=== PATIENT | male | born 1995 | race Caucasian/White ===

== ENCOUNTER 2020-10-16 17:49 | Emergency (ER) | payer SELFPAY ==
[2020-10-16 17:54] VITALS: BP 158/103; PULSE 92; RESP 18; TEMP 36.3; O2SAT 99; BMI 18.4
--- NOTE | 2020-10-16 18:16 | CTR_ITS ---
PROCEDURE INFORMATION: Exam: CT Abdomen And Pelvis Without Contrast Exam date and time: 10/16/2020 6:20 PM Age: 25 years old Clinical indication: Abdominal pain; Flank; Prior surgery; Surgery type: Left kidney; Additional info: Left flank pain. H/o kidney stones TECHNIQUE: Imaging protocol: Computed tomography of the abdomen and pelvis without contrast. Radiation optimization: All CT scans at this facility use at least one of these dose optimization techniques: automated exposure control; mA and/or kV adjustment per patient size (includes targeted exams where dose is matched to clinical indication); or iterative reconstruction. COMPARISON: CT Abdomen/Pelvis Renal [id number] 02/08/2019 10:46 PM RADIATION DOSE METRICS: Total DLP (mGy-cm): 559.25 FINDINGS: Lungs: The lung bases appear unremarkable. Liver: The liver is unremarkable in appearance. Gallbladder and bile ducts: No calcified gallstones in the gallbladder. No gallbladder wall thickening. No pericholecystic fluid. No biliary dilatation. Pancreas: The pancreas is normal in appearance. No pancreatic duct dilatation. Spleen: The spleen is normal in size and appearance. Adrenal glands: Unremarkable. No mass. Kidneys and ureters: Severe left hydronephrosis. Left ureter is dilated. There is a 4.5 mm distal left ureteral calculus. Findings are consistent with left obstructive uropathy. 5 mm retained calculus in the left renal collecting system. No right renal calculi. Stomach and bowel: Minimal diverticulosis of the distal colon. No acute diverticulitis. No acute gastric abnormality demonstrated. The small bowel is unremarkable as demonstrated. Appendix: The appendix is normal in appearance. No evidence of appendicitis. Intraperitoneal space: No free air. No significant fluid collection. Vasculature: The aorta is unremarkable as demonstrated. Lymph nodes: No pathologically enlarged lymph nodes are demonstrated. Urinary bladder: Urinary bladder is empty, but appears grossly unremarkable. Reproductive: Unremarkable as visualized. Bones/joints: Unremarkable. No acute fracture. Soft tissues: The soft tissues appear unremarkable. CT/CT kidney stone [id number] IMPRESSION: 1. Severe left hydronephrosis. Left ureter is dilated. There is a 4.5 mm distal left ureteral calculus. Findings are consistent with left obstructive uropathy. 2. 5 mm retained calculus in the left renal collecting system. No right renal calculi. Radiation Dose CTDIVOL = (mGy): DLP = 559.25 (mGy-cm)
[2020-10-16] MEDS: ketorolac 30 mg/mL INJ IVP (18:25)
[2020-10-16] MEDS: ondansetron 2 mg/ML SDV 2 mL 4 MG IVP (18:25)
[2020-10-16 18:35] LABS: Basophils # 0.1 10^3/uL (0.0-0.1); Basophils % 0.6 %; Eosinophils # 0.1 10^3/uL (0.0-0.8); Eosinophils % 0.6 %; Hematocrit 46.7 % (42.0-52.0); Hemoglobin 15.7 g/dL (11.7-16.6); Lymphocytes # 2.4 10^3/uL (0.8-4.8); Lymphocytes % 26.1 %; Mean Corpuscular HGB Conc 33.6 g/dL (30.0-36.0); Mean Corpuscular Hemoglobin 30.3 pg (28.0-34.0); Mean Platelet Volume 11.5 fL (7.4-10.4); Monocytes # 0.6 10^3/uL (0.2-0.9); Monocytes % 6.8 %; Neutrophils # 5.95 10^3/uL (1.8-7.7); Neutrophils % 65.6 %; Nucleated Red Blood Cells % 0 %; Platelet Count 165 10^3/cmm (130-400); Red Blood Count 5.19 10^6/uL (4.1-5.3); White Blood Count 9.1 10^3/uL (4.0-10.0)
[2020-10-16 18:47] LABS: Glucose Urine UA Norm (Normal); Protein Urine Trace (Negative); Specific Gravity, Urine 1.025 (1.005-1.030); Urine Appearance Hazy (CLEAR); Urine Color Yellow (Yellow); pH Urine 5 (5-7)
[2020-10-16 18:48] LABS: Add Urine Microscopic? YES; Bilirubin Urine 1+ (Negative); Blood Urine 3+ (Negative); Ketones Urine Negative (Negative); Leukocyte Esterase Urine Negative (Negative); Nitrate Urine Negative (Negative); Urobilinogen Urine 1 mg/dL (Negative)
[2020-10-16 19:04] LABS: Alanine Aminotransferase 13 U/L (0-41); Albumin Level 4.5 g/dL (3.5-5.2); Alkaline Phosphatase 59 IU/L (40-130); Anion Gap 12.9 (5-19); Aspartate Amino Transferase 15 U/L (0-40); Blood Urea Nitrogen 9 mg/dL (6-20); C Reactive Protein 0.5 mg/L (0.0-4.9); Calcium 9.4 mg/dL (8.5-10.5); Carbon Dioxide 27 mmol/L (22-29); Chloride 102 mmol/L (98-107); Creatinine Clr Calc Pharmacy 74.8112; Glomerular Filtration Rate 73.2 mL/min (90-130); Glucose 102 mg/dL (65-115); Lipase 45 U/L (13-60); Osmolality Calculated 285 mOsm/kg (285-295); Potassium 3.9 mmol/L (3.5-5.1); Sodium 138 mmol/L (136-145); Total Bilirubin 0.9 mg/dL (0.15-1.2); Total Protein 7.5 g/dL (6.6-8.7)
[2020-10-16 19:18] VITALS: RESP 16; O2SAT 97
[2020-10-16 19:18] LABS: Mucus Urine 4+ /hpf
[2020-10-16] MEDS: morphine 4 mg/mL SDV 1 mL IVP (19:18)
[2020-10-16 19:19] LABS: RBC Urine 40-50 /hpf (0-2); WBC Urine 0-4 /hpf (0-5)
[2020-10-16 19:20] LABS: Add Urine Culture? Yes; Bacteria Urine 2+ /hpf; Squamous Epithelial Cell Urine 0-4 /hpf (0-5)
[2020-10-16 19:25] VITALS: BP 135/90; PULSE 84; RESP 16; O2SAT 98
--- NOTE | 2020-10-16 19:34 | ED_ITS ---
HPI - Male Genitourinary General: Chief complaint: Urogenital-Male Stated complaint: SEVERE L SIDE PAIN Time Seen by Provider: 10/16/20 18:06 Source: patient Mode of arrival: ambulatory Limitations: no limitations History of Present Illness: HPI Narrative: Patient Onset (ago): day(s) (2) Duration: constant Radiation: left flank Severity: severe Quality: sharp Relieving factors: none Exacerbating factors: none Associated symptoms: Reports nausea; Deny discharge, dysuria, fevers/chills, hematuria, rash, swelling, urinary incontinence, urinary retention, mass or vomiting Review of Systems General: Reports: 10 or more systems reviewed and unremarkable except in HPI and below Const: Denies: fever(s), chills or body aches Eyes: Denies: change in vision or blurry vision ENMT: Denies: throat pain, enlarged tonsils, odynophagia, hoarseness, mouth pain or swelling of lips/tongue Card: Denies: palpitations, irregular heart rhythm, edema or swelling of feet/ankles Resp: Denies: dyspnea, productive cough or non-productive cough GI: Reports: nausea; Denies: vomiting : Reports: flank pain; Denies: dysuria, urinary incontinence or hematuria Musc: Denies: neck pain, back pain or extremity swelling Skin/Breast: Denies: rash, pruritus or erythema Neuro: Denies: headache(s), numbness in extremities or weakness in extremities Endo: Denies: polyuria, polydipsia or tired all the time Physical Exam Const: COMMON NORMALS: no acute distress, average body habitus, patient oriented x3, no limitations, healthy appearing, alert and well nourished HENMT: COMMON NORMALS: normocephalic, atraumatic and moist oral mucous membranes HEAD & SCALP: normocephalic and atraumatic Eye: COMMON NORMALS: Equal, round and reactive pupils present, EOMs intact bilaterally, conjunctivae normal and no scleral icterus CONJUNCTIVA: Yes conjunctivae normal PUPIL: Yes Equal, round and reactive pupils present Neck/C-Spine: COMMON NORMALS: no meningeal signs and no JVD Resp: COMMON NORMALS: normal respiratory effort, No retractions, No use of accessory muscles, clear to auscultation bilaterally and percussion normal AUSCULTATION: clear to auscultation bilaterally PERCUSSION: percussion normal Cardio: COMMON NORMALS: no JVD, regular rate, regular rhythm, S1 normal heart sound present, S2 normal heart sound present, No gallops present (Cardio), No clicks present (Cardio), No murmurs present (Cardio), No rub (Cardio) and Peripheral pulses 2+ throughout RATE: regular rate RHYTHM: regular rhythm HEART SOUNDS: S1 normal heart sound present and S2 normal heart sound present PERIPHERAL PULSES: Peripheral pulses 2+ throughout GI: COMMON NORMALS: Normal to inspection, nondistended, normoactive bowel sounds present, Soft to palpation, non-tender, No hepatosplenomegaly present, no masses and no bruits PALPATION: Yes Soft to palpation and Yes No hepatosplenomegaly present Back/Pelvis: GENERAL BACK: Yes CVA tenderness CVA tenderness: left Extremity: COMMON NORMALS: normal to inspection, full ROM, capillary refill normal, no calf tenderness and no pedal edema Neuro: COMMON NORMALS: patient oriented x3 SENSORIUM/ORIENTATION: Yes alert MENINGEAL SIGNS: Yes no meningeal signs Skin: COMMON NORMALS: no rashes or lesions noted, no wounds, turgor normal, no jaundice, no petechiae and no mottling GENERAL SKIN EXAM: no rashes or lesions noted and turgor normal Course Reevaluation(s): Reevaluation #1: Patient seen pain well controlled. He feels much better. Discussed lab and imaging findings with him, he has severe left hydronephrosis and will need evaluation by urologist and possible stent placement. We will discharge him home with some pain medication and a strainer. Will discuss with the urologist and inform him of what urology says. No signs of UTI, white cell count is normal. Time: 19:20 Consultations: Consultation #1: Discussed the patient with Dr. Bundy, urologist. He will see the patient in the office and the patient should be seen in 1 to 2 days. Ensure the patient has a strainer, pain medications and swabbing for Covid in case he needs to be taken to the OR this week. Time: 19:30 Vital Signs: Vital signs: Vital Signs Temperature 97.3 F L 10/16/20 17:54 Pulse Rate 84 10/16/20 19:25 Respiratory Rate 16 10/16/20 19:25 Blood Pressure 135/90 10/16/20 19:25 Pulse Oximetry 98 01/12/21 19:25 MDM - Male MDM Narrative: Medical decision making narrative: Patient with a left ureteral stone and severe left hydronephrosis. Pain was well controlled in the ED, no signs of an infection with a normal white cell count and a UA that is negative for infection. He is discharged home with pain medication, he already has Flomax at home. Is also sent home with a strainer and he is to follow up with a urologist in 1 to 2 days. Medical Records: Attestation: I reviewed the patient's medical records. Lab Data: Attestation: I reviewed the patient's lab results. Labs: Lab Results 10/16/20 10/16/20 10/16/20 Range/Units 18:12 18:16 18:16 WBC 9.1 (4.0-10.0) 10^3/ uL RBC 5.19 (4.1-5.3) 10^6/u L Hgb 15.7 (11.7-16.6) g/dL Hct 46.7 (42.0-52.0) % MCV 90.0 (80-94) fL MCH 30.3 (28.0-34.0) pg MCHC 33.6 (30.0-36.0) g/dL RDW 12.0 L (12.1-15.1) % Plt Count 165 (130-400) 10^3/c mm MPV 11.5 H (7.4-10.4) fL Neut % (Auto) 65.6 % Lymph % (Auto) 26.1 % [place] % (Auto) 6.8 % Eos % (Auto) 0.6 % Baso % (Auto) 0.6 % Neut # (Auto) 5.95 (1.8-7.7) 10^3/u L Lymph # (Auto) 2.4 (0.8-4.8) 10^3/u L [place] # (Auto) 0.6 (0.2-0.9) 10^3/u L Eos # (Auto) 0.1 (0.0-0.8) 10^3/u L Baso # (Auto) 0.1 (0.0-0.1) 10^3/u L Nucleated RBC % (a uto) 0 % Nucleated RBCs # 0.0 /100WBC Sodium 138 (136-145) mmol/L Potassium 3.9 (3.5-5.1) mmol/L Chloride 102 (98-107) mmol/L Carbon Dioxide 27 (22-29) mmol/L Anion Gap 12.9 (5-19) BUN 9 (6-20) mg/dL Creatinine 1.2 (0.7-1.2) mg/dL GFR Calculation 73.2 L (90-130) mL/min Glucose 102 (65-115) mg/dL Calculated Osmolal ity 285 (285-295) mOsm/k g Calcium 9.4 (8.5-10.5) mg/dL Total Bilirubin 0.9 (0.15-1.2) mg/dL AST 15 (0-40) U/L ALT 13 (0-41) U/L Alkaline Phosphata se 59 (40-130) IU/L C-Reactive Protein 0.5 (0.0-4.9) mg/L Total Protein 7.5 (6.6-8.7) g/dL Albumin 4.5 (3.5-5.2) g/dL Globulin 3.0 (1.3-4.6) g/dL Lipase 45 (13-60) U/L Urine Color Yellow (Yellow) Urine Appearance Hazy A (CLEAR) Urine pH 5 (5-7) Ur Specific Gravit y 1.025 (1.005-1.030) Urine Protein Trace (Negative) Urine Glucose (UA) Norm (Normal) Urine Ketones Negative (Negative) Urine Blood 3+ H (Negative) Urine Nitrate Negative (Negative) Urine Bilirubin 1+ H (Negative) Urine Urobilinogen 1 H (Negative) mg/dL Ur Leukocyte Heidi ase Negative (Negative) Urine RBC 40-50 H (0-2) /hpf Urine WBC 0-4 H (0-5) /hpf Ur Squamous Epith Cells 0-4 H (0-5) /hpf Amorphous Sediment Not Reportable Urine Bacteria 2+ H (NONE) /hpf Urine Mucus 4+ /hpf Imaging Data: CT Abd/Pel: Radiologist's impression: [address] [address] [address] Scan Report Signed Patient: Ronnie Calhoun Jorge #: [id number] : 1995Acct#:[id number] Age/Sex: 25 / MADM Date: 10/16/20 Loc: ERRoom/Bed: Attending Dr: Ordering Provider/Ordering MD: Jaky Metz MD, MSM Date of Service: 10/16/20 Procedure(s): CT kidney stone [id number] Accession Number(s): [id number] Report Number: [id number] PROCEDURE INFORMATION: Exam: CT Abdomen And Pelvis Without Contrast Exam date and time: 10/16/2020 6:20 PM Age: 25 years old Clinical indication: Abdominal pain; Flank; Prior surgery; Surgery type: Left kidney; Additional info: Left flank pain. H/o kidney stones TECHNIQUE: Imaging protocol: Computed tomography of the abdomen and pelvis without contrast. Radiation optimization: All CT scans at this facility use at least one of these dose optimization techniques: automated exposure control; mA and/or kV adjustment per patient size (includes targeted exams where dose is matched to clinical indication); or iterative reconstruction. COMPARISON: CT Abdomen/Pelvis Renal [id number] 02/08/2019 10:46 PM RADIATION DOSE METRICS: Total DLP (mGy-cm): 559.25 FINDINGS: Lungs: The lung bases appear unremarkable. Liver: The liver is unremarkable in appearance. Gallbladder and bile ducts: No calcified gallstones in the gallbladder. No gallbladder wall thickening. No pericholecystic fluid. No biliary dilatation. Pancreas: The pancreas is normal in appearance. No pancreatic duct dilatation. Spleen: The spleen is normal in size and appearance. Adrenal glands: Unremarkable. No mass. Kidneys and ureters: Severe left hydronephrosis. Left ureter is dilated. There is a 4.5 mm distal left ureteral calculus. Findings are consistent with left obstructive uropathy. 5 mm retained calculus in the left renal collecting system. No right renal calculi. Stomach and bowel: Minimal diverticulosis of the distal colon. No acute diverticulitis. No acute gastric abnormality demonstrated. The small bowel is unremarkable as demonstrated. Appendix: The appendix is normal in appearance. No evidence of appendicitis. Intraperitoneal space: No free air. No significant fluid collection. Vasculature: The aorta is unremarkable as demonstrated. Lymph nodes: No pathologically enlarged lymph nodes are demonstrated. Urinary bladder: Urinary bladder is empty, but appears grossly unremarkable. Reproductive: Unremarkable as visualized. Bones/joints: Unremarkable. No acute fracture. Soft tissues: The soft tissues appear unremarkable. CT/CT kidney stone [id number] IMPRESSION: 1. Severe left hydronephrosis. Left ureter is dilated. There is a 4.5 mm distal left ureteral calculus. Findings are consistent with left obstructive uropathy. 2. 5 mm retained calculus in the left renal collecting system. No right renal calculi. Radiation Dose CTDIVOL = (mGy): DLP = 559.25 (mGy-cm) Dictated By:Samuel Matson MD Signed By:Samuel Matson MDSigned Date/Time:10/16/201855 DD/ 54 Discharge Plan Discharge Patient Disposition: Home Clinical Impression: Hydronephrosis concurrent with and due to calculi of kidney and ureter Condition: Stable Prescriptions: New [place] 5-325 mg tablet 1 tab PO Q6H PRN (Reason: kidney stones) Qty: 20 RF: 0 Continued Flomax 0.4 mg Capsule 0.4 mg PO ONCE RF: 0 ibuprofen 200 mg Tablet 600 mg PO PRN RF: 0 Discharge Orders: Discharge ED (Routine); Ordered 10/16/20 Ordered By: Jaky Metz Referrals: Sage Bundy MD [Physician] - 1-3 days Discharge Diet: Usual diet Discharge Activity: Increase activity as tolerated Patient Instructions: Kidney Stones (ED), How to Strain Your Urine (ED) Activity Restrictions/Additional Instructions: Return for any new or worsening symptoms. Take the pain medicine as required for pain. Use the Flomax as prescribed. Strain your urine and if you pass the stone take it with you to the urologist. Call the office of the urologist tomorrow to schedule an appointment to be seen in 1 to 2 days. Coding Level of Care Code ED Senior Quality Assurance Specialist for Chg Fwd Exam Comprehensive
[2020-10-16] MEDS: HYDROcodone-acetaminophen 5-325 mg Tablet 4 TAB PO (20:20)
[2020-10-16 20:22] VITALS: BP 135/90; PULSE 95; RESP 15; TEMP 36.4; O2SAT 98
[2020-10-17 15:41] LABS: Coronavirus Test Green County Not Detected
== END 2020-10-16 20:22 | disposition home or self-care (01) ==
PROVIDERS: Emergency Provider Family Medicine
DX: N13.2 Hydronephrosis with renal and ureteral calculous obstruction (principal)
CPT/HCPCS: 12345; 74176; 80053; 81001; 83690; 85025; 86140; 87086; 87635; 96374; 96375; 99283; J1885; J2270; J2405

== ENCOUNTER 2020-10-17 14:06 | Outpatient (CLI) | payer SELFPAY ==
--- NOTE | 2020-10-17 14:12 | XR_ITS ---
WS: [id number] KUB, 10/17/2020 Clinical Data: Stones Comparison: KUB, 02/10/2019. Findings: No abnormal intraabdominal masses are seen. There is a 0.8 cm calcification overlying the midportion of the left kidney. There is no dilatated small bowel or evidence of obstruction. There is a large amount of fecal material throughout the colon. XR/XR KUB [id number] Impression: Possible left renal calcification.
== END 2020-10-17 14:07 | disposition home or self-care (01) ==
LOC: RAD 14:11
PROVIDERS: Visit Provider Urology
DX: N13.2 Hydronephrosis with renal and ureteral calculous obstruction (principal)
CPT/HCPCS: 74018; 81003

== ENCOUNTER 2020-10-24 13:09 | Outpatient (CLI) | payer SELFPAY ==
--- NOTE | 2020-10-24 13:45 | XR_ITS ---
WS: [id number] KUB, 10/24/2020 Clinical Data: STONE Comparison: KUB, 10/17/2020. Findings: No abnormal intraabdominal masses or calcifications are seen. There is no dilatated small bowel or ev idence of obstruction. There is a large amount of fecal material obscuring detail over both kidneys and the true pelvis. XR/XR KUB [id number] Impression: Negative KUB.
== END 2020-10-24 13:10 | disposition home or self-care (01) ==
LOC: RAD 13:10
PROVIDERS: Visit Provider Urology
DX: N20.9 Urinary calculus, unspecified (principal)
CPT/HCPCS: 74018; 81003; 82365; 88300

== ENCOUNTER 2021-04-29 02:47 | Emergency (ER) | payer SELFPAY ==
[2021-04-29 02:57] VITALS: BP 142/87; PULSE 75; RESP 16; TEMP 36.4; O2SAT 99; BMI 19.0
--- NOTE | 2021-04-29 03:22 | CTR_ITS ---
PROCEDURE INFORMATION: Exam: CT Abdomen And Pelvis Without Contrast Exam date and time: 04/29/2021 3:22 AM Age: 25 years old Clinical indication: Abdominal pain; Flank; Left; Additional info: Flank pain TECHNIQUE: Imaging protocol: Computed tomography of the abdomen and pelvis without contrast. Radiation optimization: All CT scans at this facility use at least one of these dose optimization techniques: automated exposure control; mA and/or kV adjustment per patient size (includes targeted exams where dose is matched to clinical indication); or iterative reconstruction. COMPARISON: CT kidney stone [id number] 10/16/2020 6:35 PM RADIATION DOSE METRICS: Total DLP (mGy-cm): 546.4 FINDINGS: Liver: Normal. No mass. Gallbladder and bile ducts: Normal. No calcified stones. No ductal dilation. Pancreas: Normal. No ductal dilation. Spleen: Normal. No splenomegaly. Adrenal glands: Normal. No mass. Kidneys and ureters: There is massive hydronephrosis seen within the left kidney. There is an obstructing 4.9 mm mid left ureteral calculus present. There is a 1.9 mm nonobstructing left renal calculus seen. Stomach and bowel: Unremarkable. No obstruction. No mucosal thickening. Appendix: No evidence of appendicitis. Intraperitoneal space: Unremarkable. No free air. No significant fluid collection. Vasculature: Unremarkable. No abdominal aortic aneurysm. Lymph nodes: Unremarkable. No enlarged lymph nodes. Urinary bladder: Unremarkable as visualized. Reproductive: Unremarkable as visualized. Bones/joints: Unremarkable. No acute fracture. Soft tissues: Unremarkable. CT/CT kidney stone [id number] IMPRESSION: 1. Obstructing 4.9 mm mid left ureteral calculus with prominent hydronephrosis seen within the left kidney. 2. Nonobstructing 1.9 mm left renal calculus. Radiation Dose CTDIVOL = (mGy): DLP = 546.4 (mGy-cm)
--- NOTE | 2021-04-29 03:22 | W.ED.ABDPA2 ---
HPI - Abdominal Pain General: Chief Complaint: Abdominal Pain Stated Complaint: abd pain Time Seen by Provider: 04/29/21 02:51 History of Present Illness: HPI narrative: 25-year-old male presents emergency room complaining of left flank pain. States he feels like he had a kidney stone. Has had some nausea and vomiting with it. He has had renal stones in the past. He is not noticed any hematuria no dysuria urgency or frequency no fever. MD elicited complaint: flank pain Pertinent past history: kidney stones Onset (ago): hour(s) Pain Consistency: constant Location: L flank Severity: severe Quality: stabbing and sharp Radiation: suprapubic Migration to: no migration Exacerbating factors: nothing Relieving factors: nothing Associated Symptoms: Denies anorexia, belching, bloating, change in bowel habits, change in stool character, chills, coffee ground emesis, constipation, GI cramping, diarrhea, dyspepsia, dysuria, excessive flatus, fever(s), heartburn, hematochezia, hematuria, hematemesis, fecal incontinence, loose stools, melena, nausea, poor appetite, syncope and vomiting Review of Systems Const: Denies: fever(s) or chills ENMT: Denies: throat pain, ear or mastoid pain, nasal discharge or nasal congestion Card: Denies: syncope Resp: Denies: dyspnea, productive cough or non-productive cough GI: Denies: nausea, vomiting, hematemesis, coffee ground emesis, heartburn, diarrhea, constipation, bloating, GI cramping, belching, excessive flatus, fecal incontinence, change in bowel habits, change in stool character, hematochezia or melena : Denies: dysuria or hematuria Skin/Breast: Denies: rash or pruritus PFSH ED PFSH: Medical History Left ureteral calculus Renal colic Family History Family/Other Dementia Social History Smoking and tobacco status: light tobacco smoker smokeless tobacco Smokeless tobacco user: chewing tobacco Alcohol intake: never Marital status: Physical Exam Const: COMMON NORMALS: no acute distress GENERAL APPEARANCE: cooperative and comfortable ORIENTATION/CONSCIOUSNESS: Yes awake, Yes oriented to person, Yes oriented to place and Yes oriented to time HENMT: COMMON NORMALS: normocephalic, atraumatic and hearing grossly normal bilaterally HEAD & SCALP: normocephalic and atraumatic Neck/C-Spine: COMMON NORMALS: no JVD Resp: COMMON NORMALS: normal respiratory effort, No retractions, No use of accessory muscles and clear to auscultation bilaterally AUSCULTATION: clear to auscultation bilaterally Cardio: COMMON NORMALS: no JVD, regular rate, regular rhythm and No murmurs present (Cardio) RATE: regular rate RHYTHM: regular rhythm GI: COMMON NORMALS: Soft to palpation and No hepatosplenomegaly present AUSCULTATION: Yes normoactive bowel sounds PALPATION: Yes Soft to palpation, No Tenderness to palpation present (GI), No Guarding due to palpation present (GI) and Yes No hepatosplenomegaly present Extremity: COMMON NORMALS: normal to inspection, capillary refill normal, no clubbing, cyanosis or edema, no calf tenderness and no pedal edema Neuro: SENSORIUM/ORIENTATION: Yes oriented to person, Yes oriented to place and Yes oriented to time Skin: COMMON NORMALS: no rashes or lesions noted GENERAL SKIN EXAM: no rashes or lesions noted Course Vital Signs: Vital signs: Vital Signs Temperature 97.5 F L 04/29/21 02:57 Pulse Rate 75 04/29/21 02:57 Respiratory Rate 16 04/29/21 04:16 Blood Pressure 142/87 04/29/21 02:57 Pulse Oximetry 97 04/29/21 04:16 MDM - Abdominal Pain MDM Narrative: Medical decision making narrative: Pain controlled. Reviewed labs and imaging. Reviewed with the patient. Discharge home with urine strainer follow-up with Dr. Bundy later this week return if pain uncontrolled. Lab Data: Attestation: I reviewed the patient's lab results. Labs: Lab Results 04/29/21 04/29/21 04/29/21 Range/Units 03:18 03:18 03:40 WBC 6.7 (4.0-10.0) 10^3/ uL RBC 4.61 (4.1-5.3) 10^6/u L Hgb 13.6 (11.7-16.6) g/dL Hct 40.0 L (42.0-52.0) % MCV 86.8 (80-94) fL MCH 29.5 (28.0-34.0) pg MCHC 34.0 (30.0-36.0) g/dL RDW 12.8 (12.1-15.1) % Plt Count 185 (130-400) 10^3/c mm MPV 12.0 H (7.4-10.4) fL Neut % (Auto) 59.4 % Lymph % (Auto) 31.8 % [place] % (Auto) 7.1 % Eos % (Auto) 1.0 % Baso % (Auto) 0.6 % Neut # (Auto) 4.00 (1.8-7.7) 10^3/u L Lymph # (Auto) 2.1 (0.8-4.8) 10^3/u L [place] # (Auto) 0.5 (0.2-0.9) 10^3/u L Eos # (Auto) 0.1 (0.0-0.8) 10^3/u L Baso # (Auto) 0.0 (0.0-0.1) 10^3/u L Nucleated RBC % (a uto) 0 % Nucleated RBCs # 0.0 /100WBC Sodium 140 (136-145) mmol/L Potassium 3.9 (3.5-5.1) mmol/L Chloride 105 (98-107) mmol/L Carbon Dioxide 26 (22-29) mmol/L Anion Gap 12.9 (5-19) BUN 12 (6-20) mg/dL Creatinine 0.9 (0.7-1.2) mg/dL GFR Calculation 102.0 (90-130) mL/min Glucose 98 (65-115) mg/dL Calculated Osmolal ity 290 (285-295) mOsm/k g Calcium 8.8 (8.5-10.5) mg/dL Total Bilirubin 0.3 (0.15-1.2) mg/dL AST 13 (0-40) U/L ALT 12 (0-41) U/L Alkaline Phosphata se 61 (40-130) IU/L Total Protein 7.0 (6.6-8.7) g/dL Albumin 4.0 (3.5-5.2) g/dL Globulin 3.0 (1.3-4.6) g/dL Lipase 75 H (13-60) U/L Urine Color Yellow (Yellow) Urine Appearance Clear (CLEAR) Urine pH 6.5 (5-7) Ur Specific Gravit y 1.015 (1.005-1.030) Urine Protein Neg (Negative) Urine Glucose (UA) Norm (Normal) Urine Ketones Negative (Negative) Urine Blood Neg (Negative) Urine Nitrate Negative (Negative) Urine Bilirubin Neg (Negative) Urine Urobilinogen Norm (Negative) mg/dL Ur Leukocyte Heidi ase Negative (Negative) Discharge Plan Discharge Patient Disposition: Home Clinical Impression: Left ureteral calculus Condition: Stable Prescriptions: New hydrocodone-acetaminophen 5-325 mg tablet 1 tab PO Q6H PRN (Reason: pain) Qty: 20 RF: 0 Zofran 4 mg tablet 4 mg PO Q6H PRN (Reason: nausea and vomiting) Qty: 15 RF: 0 tamsulosin 0.4 mg capsule 0.4 mg PO DAILY Qty: 14 RF: 0 No Action ondansetron HCl 8 mg tablet 8 mg PO Q8H Qty: 20 RF: 1 promethazine 25 mg suppository 25 mg [place] Q6H PRN (Reason: nausea and vomiting) Qty: 12 RF: 0 Flomax 0.4 mg capsule 0.4 mg PO DAILY Qty: 30 RF: 0 ibuprofen 200 mg Tablet 600 mg PO PRN RF: 0 [place] 5-325 mg tablet 1 tab PO Q6H PRN (Reason: kidney stones) Qty: 20 RF: 0 Discharge Orders: Discharge ED (Routine); Ordered 04/29/21 Ordered By: Manjit Rojas Discharge Diet: Usual diet Discharge Activity: Increase activity as tolerated Patient Instructions: Opioid Safety Activity Restrictions/Additional Instructions: Case management will call to make arrangements for you to follow-up with Dr. Bundy. Return to the emergency room if pain is uncontrolled Coding Level of Care Code ED Women'S Activities Adviser for Declan Fwbinta Exam Comprehensive
[2021-04-29 04:00] LABS: Add Urine Microscopic? NO; Charge for UA Resulting for Rev
[2021-04-29 04:03] LABS: Basophils % 0.6 %; Eosinophils # 0.1 10^3/uL (0.0-0.8); Hemoglobin 13.6 g/dL (11.7-16.6); Lymphocytes # 2.1 10^3/uL (0.8-4.8); Lymphocytes % 31.8 %; Mean Corpuscular Hemoglobin 29.5 pg (28.0-34.0); Mean Corpuscular Volume 86.8 fL (80-94); Monocytes # 0.5 10^3/uL (0.2-0.9); Monocytes % 7.1 %; Neutrophils % 59.4 %; Nucleated Red Blood Cells % 0 %; Platelet Count 185 10^3/cmm (130-400); Red Blood Count 4.61 10^6/uL (4.1-5.3); Red Cell Distribution Width 12.8 % (12.1-15.1); White Blood Count 6.7 10^3/uL (4.0-10.0)
[2021-04-29 04:07] LABS: Bilirubin Urine Neg (Negative); Blood Urine Neg (Negative); Glucose Urine UA Norm (Normal); Ketones Urine Negative (Negative); Leukocyte Esterase Urine Negative (Negative); Nitrate Urine Negative (Negative); Protein Urine Neg (Negative); Specific Gravity, Urine 1.015 (1.005-1.030); Urine Appearance Clear (CLEAR); Urine Color Yellow (Yellow); Urobilinogen Urine Norm (Negative); pH Urine 6.5 (5-7)
[2021-04-29 04:16] VITALS: RESP 16; O2SAT 97
[2021-04-29] MEDS: morphine 4 mg/mL SDV 1 mL IVP (04:16)
[2021-04-29] MEDS: ondansetron 2 mg/ML SDV 2 mL 4 MG IVP (04:16)
[2021-04-29 04:19] LABS: Alanine Aminotransferase 12 U/L (0-41); Alkaline Phosphatase 61 IU/L (40-130); Anion Gap 12.9 (5-19); Aspartate Amino Transferase 13 U/L (0-40); Blood Urea Nitrogen 12 mg/dL (6-20); Calcium 8.8 mg/dL (8.5-10.5); Carbon Dioxide 26 mmol/L (22-29); Chloride 105 mmol/L (98-107); Glucose 98 mg/dL (65-115); Lipase 75 U/L (13-60); Osmolality Calculated 290 mOsm/kg (285-295); Potassium 3.9 mmol/L (3.5-5.1); Sodium 140 mmol/L (136-145); Total Bilirubin 0.3 mg/dL (0.15-1.2)
[2021-04-29 05:08] VITALS: BP 130/84; PULSE 68; RESP 14; TEMP 36.8; O2SAT 96
--- NOTE | 2021-04-29 10:47 | DCPLANNER ---
senior risk manager had message to schedule a follow up appointment for patient with Dr. Bundy for kidney stone. senior risk manager called the office of Dr. Bundy, spoke with Pennie, gave clinic patients information. senior risk manager was told that patients information would be printed and reviewed. Clinic will call patient with appointment information.
--- NOTE | 2021-04-30 08:31 | DCPLANNER ---
Patient has a follow up appointment scheduled for Friday, April 30, 2021 at 11:[address] Bundy. Clinic will call patient with appointment information.
--- NOTE | 2021-05-09 11:51 | DCPLANNER ---
[facility] for [facility] Bundy - patient did attend appointment.
== END 2021-04-29 05:10 | disposition home or self-care (01) ==
PROVIDERS: Emergency Provider Family Medicine
DX: N20.1 Calculus of ureter (principal); F17.220 Nicotine dependence, chewing tobacco, uncomplicated
CPT/HCPCS: 74176; 80053; 81003; 83690; 85025; 96374; 96375; 99283; J2270; J2405

== ENCOUNTER 2021-04-30 09:35 | Outpatient (CLI) | payer SELFPAY ==
--- NOTE | 2021-04-30 10:00 | XR_ITS ---
WS: [id number] XR KUB [id number] REASON FOR EXAM: URETERAL STONE FINDINGS: CT scan 04/29/2021 demonstrated 2 tiny left intrarenal calculi and a calculus in the left ureter at th e L4 level. The left intrarenal calculi are not readily identifiable. The left ureteral calculus at L 4 is not identifiable. No other significant abdominal abnormality. XR/XR KUB [id number] IMPRESSION: Previous CT demonstrated left renal and left ureteral calculi are not identifie d.
== END 2021-04-30 09:36 | disposition home or self-care (01) ==
LOC: RAD 09:42
PROVIDERS: Visit Provider Urology
DX: N20.1 Calculus of ureter (principal)
CPT/HCPCS: 74018; 81003

== ENCOUNTER 2021-05-08 12:41 | Outpatient (CLI) | payer SELFPAY ==
--- NOTE | 2021-05-08 12:30 | XR_ITS ---
WS: [id number] KUB, AP view, 05/08/2021 Clinical Data: URETERAL CALCULUS Comparison: KUB, 04/30/2021. Findings: No abnormal intraabdominal masses or calcifications are seen. There is no dilatated small bowel or ev idence of obstruction. Fecal material and colon gas obscure detail over the kidneys. There is a phlebolith at the left side of the true pelvis. XR/XR KUB [id number] Impression: Negative KUB.
== END 2021-05-08 12:42 | disposition home or self-care (01) ==
LOC: RAD 12:43
PROVIDERS: Visit Provider Urology
DX: N20.1 Calculus of ureter (principal)
CPT/HCPCS: 74018; 81003

== ENCOUNTER 2021-06-20 16:38 | Emergency (ER) | payer SELFPAY ==
[2021-06-20 16:46] VITALS: BP 128/84; PULSE 72; RESP 18; TEMP 36.8; O2SAT 99; BMI 19.0
[2021-06-20 17:09] LABS: Basophils % 0.5 %; Eosinophils # 0.1 10^3/uL (0.0-0.8); Hematocrit 44.9 % (42.0-52.0); Hemoglobin 15.3 g/dL (11.7-16.6); Lymphocytes # 2.2 10^3/uL (0.8-4.8); Mean Corpuscular HGB Conc 34.1 g/dL (30.0-36.0); Mean Corpuscular Hemoglobin 29.9 pg (28.0-34.0); Mean Corpuscular Volume 87.9 fl (80-94); Monocytes # 0.5 10^3/uL (0.2-0.9); Monocytes % 6.6 %; Neutrophils # 5.17 10^3/uL (1.8-7.7); Neutrophils % 64.6 %; Nucleated Red Blood Cells % 0 %; Platelet Count 195 10^3/cmm (130-400); Red Blood Count 5.11 10^6/uL (4.1-5.3); Red Cell Distribution Width 12.7 % (12.1-15.1)
[2021-06-20 17:10] VITALS: BP 114/74; PULSE 78; RESP 12; O2SAT 98
--- NOTE | 2021-06-20 17:10 | W.ED.MALEGU ---
HPI - Male Genitourinary General: Chief complaint: Urogenital-Male Stated complaint: STATES HAS KIDNEY STONES, BLOODY URINE Time Seen by Provider: 06/20/21 17:10 History of Present Illness: HPI Narrative: 26-year-old male patient comes in today with left flank pain. Patient states that he started having discomfort and noticed some blood in his urine last Thursday. Patient states that he seemed to have gotten better after 3 days of pain and discomfort and thought he had passed a kidney stone. Patient then yesterday started having some more pain that increased throughout today. Patient did take a hydrocodone this morning and then took some ibuprofen and aspirin later in the day. Patient denies any fever or chills. Patient appears in mild to moderate pain. Patient appears well. Review of Systems General: Reports: 10 or more systems reviewed and unremarkable except in HPI and below : Reports: flank pain PFS ED PFSH: Medical History Left ureteral calculus Renal colic Family History Family/Other Dementia Social History Alcohol intake: never Marital status: History of recent travel: No Physical Exam Const: COMMON NORMALS: no acute distress and patient oriented x3 GENERAL APPEARANCE: cooperative HENMT: COMMON NORMALS: normocephalic and Normal external nose present HEAD & SCALP: normal to inspection and normocephalic NOSE: Normal external nose present Eye: GENERAL EYE: appearance normal, both eyes and all related structures Neck/C-Spine: COMMON NORMALS: full ROM Chest: COMMONS NORMALS: normal inspection of the chest Resp: COMMON NORMALS: normal respiratory effort EFFORT & INSPECTION: Yes able to speak in complete sentences Cardio: COMMON NORMALS: regular rate and regular rhythm RATE: regular rate RHYTHM: regular rhythm GI: COMMON NORMALS: Soft to palpation PALPATION: Yes Soft to palpation and Yes Tenderness to palpation present (GI) Details: LUQ : BLADDER/KIDNEY EXAM: Yes CVA tenderness on the left Back/Pelvis: COMMON NORMALS: thoracic and lumbar spine normal to inspection GENERAL BACK: Yes CVA tenderness Extremity: COMMON NORMALS: normal to inspection Neuro: COMMON NORMALS: patient oriented x3 and moves all extremities Psych: COMMON NORMALS: mental status grossly normal and cooperative Skin: COMMON NORMALS: no rashes or lesions noted GENERAL SKIN EXAM: no rashes or lesions noted Course Vital Signs: Vital signs: Vital Signs Temperature 98.2 F 06/20/21 16:46 Pulse Rate 74 06/20/21 18:40 Respiratory Rate 16 06/20/21 18:40 Blood Pressure 129/86 06/20/21 18:40 Pulse Oximetry 99 06/20/21 18:40 MDM - Male MDM Narrative: Medical decision making narrative: A 26-year-old male patient comes in today with complaints of left flank pain. Patient has a history of left ureteral stones in the past. Last one was 2 months ago in April. Patient reports he did started having pain on Thursday it seemed to improve for a short term through the beginning of the week but starting today he had worsening pain and discomfort. On exam patient's abdomen is soft with some tenderness in the left upper quadrant. Skin was warm and dry. Vital signs were normal. Differential diagnosis includes renal calculi, hydronephrosis, pyelonephritis. Laboratory values were unremarkable. Urinalysis had red blood cells in it. CT showed a 3 to 4 mm stone in the distal left ureter with some significant hydronephrosis in the left kidney. Patient's pain was brought under control with 4 mg of IV push morphine. Patient was also given some Zofran. Patient was instructed to follow-up with Dr. Bundy for further treatment. Patient reported understanding of care plan. Patient was written for recommended prescriptions for hydrocodone, ondansetron, and tamsulosin. Lab Data: Labs: Lab Results 06/20/21 06/20/21 06/20/21 Range/Units 17:00 17:02 17:02 WBC 8.0 (4.0-10.0) 10^3/ uL RBC 5.11 (4.1-5.3) 10^6/u L Hgb 15.3 (11.7-16.6) g/dL Hct 44.9 (42.0-52.0) % MCV 87.9 (80-94) fl MCH 29.9 (28.0-34.0) pg MCHC 34.1 (30.0-36.0) g/dL RDW 12.7 (12.1-15.1) % Plt Count 195 (130-400) 10^3/c mm MPV 11.0 H (7.4-10.4) fL Neut % (Auto) 64.6 % Lymph % (Auto) 27.0 % [place] % (Auto) 6.6 % Eos % (Auto) 1.0 % Baso % (Auto) 0.5 % Neut # (Auto) 5.17 (1.8-7.7) 10^3/u L Lymph # (Auto) 2.2 (0.8-4.8) 10^3/u L [place] # (Auto) 0.5 (0.2-0.9) 10^3/u L Eos # (Auto) 0.1 (0.0-0.8) 10^3/u L Baso # (Auto) 0.0 (0.0-0.1) 10^3/u L Nucleated RBC % (a uto) 0 % Nucleated RBCs # 0.0 /100WBC Sodium 142 (136-145) mmol/L Potassium 4.4 (3.5-5.1) mmol/L Chloride 105 (98-107) mmol/L Carbon Dioxide 30 H (22-29) mmol/L Anion Gap 11.4 (5-19) BUN 7 (6-20) mg/dL Creatinine 0.9 (0.7-1.2) mg/dL GFR Calculation 101.2 (90-130) mL/min Glucose 75 (65-115) mg/dL Calculated Osmolal ity 291 (285-295) mOsm/k g Calcium 9.1 (8.5-10.5) mg/dL Total Bilirubin 0.5 (0.15-1.2) mg/dL AST 16 (0-40) U/L ALT 16 (0-41) U/L Alkaline Phosphata se 58 (40-130) IU/L Total Protein 7.0 (6.6-8.7) g/dL Albumin 4.6 (3.5-5.2) g/dL Globulin 2.4 (1.3-4.6) g/dL Urine Color Yellow (Yellow) Urine Appearance Clear (CLEAR) Urine pH 6.5 (5-7) Ur Specific Gravit y 1.010 (1.005-1.030) Urine Protein Neg (Negative) Urine Glucose (UA) Norm (Normal) Urine Ketones Negative (Negative) Urine Blood 3+ H (Negative) Urine Nitrate Negative (Negative) Urine Bilirubin Neg (Negative) Urine Urobilinogen Norm (Negative) mg/dL Ur Leukocyte Heidi ase Negative (Negative) Urine RBC 10-15 H (0-2) /hpf Urine WBC None (0-5) /hpf Ur Squamous Epith Cells Rare (0-5) /hpf Amorphous Sediment Not Reportable Urine Bacteria Trace (NONE) /hpf Discharge Plan Discharge Patient Disposition: Home Clinical Impression: Left ureteral calculus Condition: Stable Prescriptions: New ondansetron 4 mg tablet,disintegrating 4 mg PO Q8H PRN (Reason: nausea and vomiting) Qty: 10 RF: 0 tamsulosin 0.4 mg capsule 0.4 mg PO DAILY Qty: 10 RF: 0 Continued hydrocodone-acetaminophen 5-325 mg tablet 1 tab PO Q6H PRN (Reason: pain) 5 Days Qty: 20 RF: 0 No Action Octaviano Aspirin 325 mg Tablet 325 mg PO Q4H PRN (Reason: Pain) RF: 0 ibuprofen 200 mg Tablet 200 mg PO Q6H PRN (Reason: Pain) RF: 0 Discharge Orders: Discharge ED (Routine); Ordered 06/20/21 Ordered By: Erick Santos Discharge Diet: Usual diet Discharge Activity: Increase activity as tolerated Patient Instructions: Renal Colic (ED), Opioid Safety Activity Restrictions/Additional Instructions: Activity as tolerated. Take medications as directed. Follow-up with Dr. Bundy's office in the morning for further treatment and evaluation. Return to the emergency department for high fever, worsening pains, or new concerns. Coding Level of Care Code ED Independent Marketing Consultant for Declan Hartley Exam Comprehensive
--- NOTE | 2021-06-20 17:17 | CTR_ITS ---
PROCEDURE INFORMATION: Exam: CT Abdomen And Pelvis Without Contrast Exam date and time: 06/20/2021 5:17 PM Age: 26 years old Clinical indication: Abdominal pain; Flank; Left; Additional info: Left flank pain, HX of renal calculi TECHNIQUE: Imaging protocol: Computed tomography of the abdomen and pelvis without contrast. Radiation optimization: All CT scans at this facility use at least one of these dose optimization techniques: automated exposure control; mA and/or kV adjustment per patient size (includes targeted exams where dose is matched to clinical indication); or iterative reconstruction. COMPARISON: CT kidney stone [id number] 04/29/2021 3:36 AM RADIATION DOSE METRICS: Total DLP (mGy-cm): 815.72 FINDINGS: Limitations: The absence of intravenous contrast lessens the sensitivity of this study for solid organ abnormalities. Liver: There is no focal abnormality within the liver. Gallbladder and bile ducts: The gallbladder is normal. Pancreas: The pancreas is normal. Spleen: The spleen is normal. Adrenal glands: The adrenal glands are normal. Kidneys and ureters: The right kidney is normal. There is no evidence of right hydronephrosis. There is no stone in the right ureter. There is a left renal collecting system calcification. There is marked left hydronephrosis. There is left hydroureter. There is a 3 x 4 mm size obstructing stone in the distal left ureter approximately 1.5 cm from the left ureterovesical junction. Stone measures up to 780 Hounsfield units. This stone is visible on the gambling dealer image. Stomach and bowel: There is no evidence of colitis/diverticulitis. There is no evidence of intestinal obstruction. Appendix: A normal appendix is identified. Intraperitoneal space: There is no evidence of free intraperitoneal fluid. Vasculature: Unremarkable. No abdominal aortic aneurysm. Lymph nodes: There are small periaortic lymph nodes but no adenopathy. Urinary bladder: Unremarkable as visualized. Reproductive: Unremarkable as visualized. Bones/joints: Unremarkable. No acute fracture. Soft tissues: Unremarkable. CT/CT kidney stone [id number] IMPRESSION: 1. Obstructing stone at the left ureterovesical junction causing severe left hydronephrosis and hydroureter. 2. Tiny nonobstructing left renal stone. Radiation Dose CTDIVOL = (mGy): DLP = 815.72 (mGy-cm)
[2021-06-20 17:30] LABS: Glucose Urine UA Norm (Normal); Ketones Urine Negative (Negative); Protein Urine Neg (Negative); Urine Appearance Clear (CLEAR); Urine Color Yellow (Yellow); pH Urine 6.5 (5-7)
[2021-06-20 17:30] LABS: Alanine Aminotransferase 16 U/L (0-41); Albumin Level 4.6 g/dL (3.5-5.2); Alkaline Phosphatase 58 IU/L (40-130); Anion Gap 11.4 (5-19); Aspartate Amino Transferase 16 U/L (0-40); Blood Urea Nitrogen 7 mg/dL (6-20); Calcium 9.1 mg/dL (8.5-10.5); Carbon Dioxide 30 mmol/L (22-29); Chloride 105 mmol/L (98-107); Creatinine Clr Calc Pharmacy 98.8733; Globulin 2.4 g/dL (1.3-4.6); Glomerular Filtration Rate 101.2 mL/min (90-130); Glucose 75 mg/dL (65-115); Osmolality Calculated 291 mOsm/kg (285-295); Potassium 4.4 mmol/L (3.5-5.1); Sodium 142 mmol/L (136-145); Total Bilirubin 0.5 mg/dL (0.15-1.2)
[2021-06-20 17:31] LABS: Add Urine Culture? Yes; Add Urine Microscopic? YES; Bacteria Urine TRACE /hpf; Bilirubin Urine Neg (Negative); Blood Urine 3+ (Negative); Leukocyte Esterase Urine Negative (Negative); Nitrate Urine Negative (Negative); Squamous Epithelial Cell Urine RARE /hpf (0-5); Urobilinogen Urine Norm (Negative)
[2021-06-20 18:05] VITALS: RESP 16
[2021-06-20] MEDS: morphine 4 mg/mL SDV 1 mL IVP (18:05)
[2021-06-20] MEDS: ondansetron 2 mg/ML SDV 2 mL 4 MG IVP (18:05)
[2021-06-20] MEDS: sodium chloride 0.9% 500 ML 999 ML IV (18:06)
[2021-06-20 18:40] VITALS: BP 129/86; PULSE 74; RESP 16; O2SAT 99
[2021-06-20 19:07] VITALS: BP 131/74; PULSE 96; RESP 18; O2SAT 98
== END 2021-06-20 19:08 | disposition home or self-care (01) ==
PROVIDERS: Physician Assistant; Emergency Provider Nurse Practitioner Family
DX: N20.1 Calculus of ureter (principal); Z79.82 Long term (current) use of aspirin; Z87.442 Personal history of urinary calculi
CPT/HCPCS: 74176; 80053; 81001; 85025; 87086; 96374; 96375; 99284; J2270; J2405; J7040

== ENCOUNTER 2022-11-17 09:07 | Emergency (ER) | payer MEDICAID, SELFPAY ==
[2022-11-17 09:14] VITALS: BP 136/89; PULSE 83; RESP 16; TEMP 36.6; O2SAT 98
--- NOTE | 2022-11-17 09:32 | CT_ITS ---
WS: [id number] CT ABDOMEN AND PELVIS NONCONTRAST HISTORY: concern for kidney stone TECHNIQUE: Imaging performed through the abdomen and pelvis. Coronal and sagittal reformats are submi tted. All CT scans at [facility] use at least one of these dose optimization techniques: auto mated exposure control; mA and/or kV adjustment per patient size (includes targeted exams where dose is matched to clinical indication); or iterative reconstruction. DLP: 327.16 mGy.cm COMPARISON: 06/20/2021 Lower thorax: Lung bases are clear. Visualized heart is normal. No hiatal hernia. Liver: Normal size liver. No mass or bile duct dilatation. Gallbladder: Normal gallbladder. Pancreas: Normal size and attenuation. Normal pancreatic duct. No pancreatitis or mass. Spleen: Normal. Adrenal glands: Normal. No mass. Right kidney: Normal size kidney with no mass or hydronephrosis. Left kidney: Mildly enlarged kidney with no significant acute perinephric stranding. Severe hydrouret eronephrosis. Distal 4 mm calcification at the UV junction. There is an additional calcification carlos uring 2 mm more proximally but also within the distal ureter. There are additional small nonobstructi ng LEFT renal calcifications. Aorta: Negative. No free fluid. There are small mesenteric and RIGHT lower quadrant lymph nodes. These were also prese nt on the prior study. GI tract: Normal appendix. No obstruction of the GI tract. Abdominal wall: Negative. No hernia. Pelvis: No free fluid or adenopathy. Osseous structures: Unremarkable. CT/CT kidney stone [id number] IMPRESSION: 1. High-grade LEFT hydroureteronephrosis. The hydroureteronephrosis in part ma y be chronic as this has been present on multiple prior examinations, dating ba ck to 2017. 2. Distal LEFT UV junction 4 mm calcification and a more proximal 2 mm calcific ation. 3. Normal appendix. Notified Rohit Celis MD at 11/17/2022 10:57 AM.
--- NOTE | 2022-11-17 09:34 | ED_ITS ---
HPI - Abdominal Pain General: Chief Complaint: Abdominal Pain Stated Complaint: Abd pain Time Seen by Provider: 11/17/22 09:18 History of Present Illness: Patient comes in with left flank pain that started in the middle the night. He describes it as left flank/radiates to the left ab domen, sharp, constant, worsening. Associated with nausea. States it feels very similar to previous kidney stones. Denies fever, dysuria, diarrhea, cough, or other cold symptoms. On physical exam his abdomen is soft, nontender nondistended. Associated Symptoms: Reports nausea; Denies dysuria, fever(s) and vomiting Review of Systems Const: Denies: fever(s) or body aches Eyes: Denies: change in vision or blurry vision ENMT: Denies: throat pain or odynophagia Card: Denies: chest pain or palpitations Resp: Denies: dyspnea or productive cough GI: Reports: abdominal pain and nausea; Denies: vomiting : Reports: flank pain; Denies: dysuria Musc: Denies: neck pain or back pain Skin/Breast: Denies: rash or pruritus Neuro: Denies: headache(s) or numbness in extremities Psych: Denies: anxiety or change in appetite Endo: Denies: polyuria or excessive sweating PFSH ED PFSH: Medical History Left ureteral calculus Renal colic Family History Family/Other Dementia Social History Alcohol intake: never Marital status: History of recent travel: No Physical Exam Const: COMMON NORMALS: no acute distress, patient oriented x3, healthy appearing and alert HENMT: COMMON NORMALS: normocephalic and atraumatic HEAD & SCALP: normocephalic and atraumatic Eye: COMMON NORMALS: Equal, round and reactive pupils present and EOMs intact bilaterally PUPIL: Yes Equal, round and reactive pupils present Neck/C-Spine: COMMON NORMALS: full ROM and supple Resp: COMMON NORMALS: normal respiratory effort, No retractions and No use of accessory muscles Cardio: COMMON NORMALS: regular rate and regular rhythm RATE: regular rate RHYTHM: regular rhythm GI: COMMON NORMALS: Normal to inspection, nondistended, normoactive bowel sounds present, Soft to palpation and non-tender PALPATION: Yes Soft to palpation Back/Pelvis: COMMON NORMALS: thoracic and lumbar spine normal to inspection and no thoracic nor lumbar tenderness Extremity: COMMON NORMALS: normal to inspection and full ROM Neuro: COMMON NORMALS: patient oriented x3 SENSORIUM/ORIENTATION: Yes alert Psych: COMMON NORMALS: mental status grossly normal and cooperative Skin: COMMON NORMALS: no rashes or lesions noted and no wounds GENERAL SKIN EXAM: no rashes or lesions noted Course Vital Signs: Vital signs: Vital Signs Temperature 97.9 F 11/17/22 09:14 Pulse Rate 82 11/17/22 11:33 Respiratory Rate 18 11/17/22 10:58 Blood Pressure 131/74 11/17/22 11:33 Pulse Oximetry 99 11/17/22 11:33 Oxygen Delivery Me thod 11/17/22 11:33 MDM - Abdominal Pain Medical Decision Making Patient comes in with left flank pain that started in the middle the night. He describes it as left flank/radiates to the left abdomen, sharp, constant, worsening. Associated with nausea. States it feels very similar to previous kidney stones. Denies fever, dysuria, diarrhea, cough, or other cold symptoms. On physical exam his abdomen is soft, nontender nondistended. Will check labs, CT, treat pain with IV Toradol, treat nausea with IV Zofran, give IV fluids, and reassess. On reassessment I talked to the patient about the test results. We will continue pain meds, nausea meds, started on Flomax, and discharge with precautions return for worsening or changing symptoms. The patient states he follows up with Dr. Bundy from urology. Lab Data 11/17/22 09:54 11/17/22 09:54 Labs/Radiology: Radiology Impressions Abdomen/Pelvis CT 11/17/22 09:32 IMPRESSION: 1. High-grade LEFT hydroureteronephrosis. The hydroureteronephrosis in part may be chronic as this has been present on multiple prior examinations, dating back to 2017. 2. Distal LEFT UV junction 4 mm calcification and a more proximal 2 mm calcification. 3. Normal appendix. Notified Rohit Celis MD at 11/17/2022 10:57 AM. Laboratory Results WBC 10.8 10^3/uL (4.0-10.0) H 11/17/22 09:54 RBC 5.17 10^6/uL (4.1-5.3) 11/17/22 09:54 Hgb 15.5 g/dL (11.7-16.6) 11/17/22 09:54 Hct 44.7 % (42.0-52.0) 11/17/22 09:54 MCV 86.5 fl (80-94) 11/17/22 09:54 MCH 30.0 pg (28.0-34.0) 11/17/22 09:54 MCHC 34.7 g/dL (30.0-36.0) 11/17/22 09:54 RDW 12.4 % (12.1-15.1) 11/17/22 09:54 Plt Count 175 10^3/cmm (130-400) 11/17/22 09:54 MPV 11.4 fL (7.4-10.4) H 11/17/22 09:54 Neut % (Auto) 81.6 % 11/17/22 09:54 Lymph % (Auto) 12.4 % 11/17/22 09:54 [place] % (Auto) 5.1 % 11/17/22 09:54 Eos % (Auto) 0.2 % 11/17/22 09:54 Baso % (Auto) 0.4 % 11/17/22 09:54 Neut # (Auto) 8.83 10^3/uL (1.8-7.7) H 11/17/22 09:54 Lymph # (Auto) 1.3 10^3/uL (0.8-4.8) 11/17/22 09:54 [place] # (Auto) 0.6 10^3/uL (0.2-0.9) 11/17/22 09:54 Eos # (Auto) 0.0 10^3/uL (0.0-0.8) 11/17/22 09:54 Baso # (Auto) 0.0 10^3/uL (0.0-0.1) 11/17/22 09:54 Nucleated RBC % (auto) 0 % 11/17/22 09:54 Nucleated RBCs # 0.0 /100WBC 11/17/22 09:54 Sodium 138 mmol/L (136-145) 11/17/22 09:54 Potassium 3.7 mmol/L (3.5-5.1) 11/17/22 09:54 Chloride 100 mmol/L (98-107) 11/17/22 09:54 Carbon Dioxide 27 mmol/L (22-29) 11/17/22 09:54 Anion Gap 14.7 (5-19) 11/17/22 09:54 BUN 13 mg/dL (6-20) 11/17/22 09:54 Creatinine 1.0 mg/dL (0.7-1.2) 11/17/22 09:54 GFR Calculation 89.0 mL/min (90-130) L 11/17/22 09:54 Glucose 98 mg/dL (65-115) 11/17/22 09:54 Calculated Osmolality 286 mOsm/kg (285-295) 11/17/22 09:54 Calcium 9.7 mg/dL (8.5-10.5) 11/17/22 09:54 Total Bilirubin 0.8 mg/dL (0.15-1.2) 11/17/22 09:54 AST 20 U/L (0-40) 11/17/22 09:54 ALT 22 U/L (0-41) 11/17/22 09:54 Alkaline Phosphatase 69 U/L (40-130) 11/17/22 09:54 Total Protein 7.3 g/dL (6.6-8.7) 11/17/22 09:54 Albumin 4.8 g/dL (3.5-5.2) 11/17/22 09:54 Globulin 2.5 g/dL (1.3-4.6) 11/17/22 09:54 Urine Color Yellow (Yellow) 11/17/22 09:45 Urine Appearance Sl hazy (CLEAR) A 11/17/22 09:45 Urine pH 6 (5-7) 11/17/22 09:45 Ur Specific [place] 1.025 (1.005-1.030) 11/17/22 09:45 Urine Protein Neg (Negative) 11/17/22 09:45 Urine Glucose (UA) Norm (Normal) 11/17/22 09:45 Urine Ketones 1+ (Negative) H 11/17/22 09:45 Urine Blood 3+ (Negative) H 11/17/22 09:45 Urine Nitrate Negative (Negative) 11/17/22 09:45 Urine Bilirubin Neg (Negative) 11/17/22 09:45 Urine Urobilinogen 1 mg/dL (Negative) H 11/17/22 09:45 Ur Leukocyte Esterase Negative (Negative) 11/17/22 09:45 Urine RBC 10-15 /hpf (0-2) H 11/17/22 09:45 Urine WBC 0-4 /hpf (0-5) H 11/17/22 09:45 Ur Squamous Epith Cells 0-4 /hpf (0-5) H 11/17/22 09:45 Amorphous Sediment 2+ /hpf 11/17/22 09:45 Urine Bacteria Trace /hpf (NONE) 11/17/22 09:45 Urine Mucus 2+ /hpf 11/17/22 09:45 Discharge Plan Discharge Patient Disposition: Home Clinical Impression: Calculus of kidney Condition: Stable Prescriptions: New Flomax 0.4 mg capsule 0.4 mg PO DAILY 4 Days Qty: 4 0RF hydrocodone-acetaminophen 5-325 mg tablet 1 tab PO Q6H PRN (Reason: pain) Qty: 10 0RF ondansetron 4 mg tablet,disintegrating 4 mg PO Q8H PRN (Reason: nausea and vomiting) 4 Days Qty: 9 0RF No Action Tylenol Ex Str Rapid Release 500 mg Tablet 1,000 mg PO Q6H PRN (Reason: Pain) ibuprofen 200 mg Tablet 400 mg PO Q6H PRN (Reason: Pain) Octaviano Back and Body 500-32.5 mg Tablet 1 tab PO BID PRN (Reason: Pain) Discharge Orders: Discharge ED (Routine); Ordered 11/17/22 Ordered By: Rohit Celis Patient Instructions: Kidney Stones (ED), Opioid Safety Coding Level of Care Code ED Workers Compensation Claims Analyst for Declan Hartley
[2022-11-17] MEDS: ketorolac 30 mg/mL INJ 15 MG IVP (09:57)
[2022-11-17] MEDS: ondansetron 2 mg/ML SDV 2 mL 4 MG IVP ×2 (09:57→10:58)
[2022-11-17] MEDS: sodium chloride 0.9% 1,000 ML 999 ML IV (09:58)
[2022-11-17 10:03] LABS: Basophils % 0.4 %; Eosinophils % 0.2 %; Hematocrit 44.7 % (42.0-52.0); Hemoglobin 15.5 g/dL (11.7-16.6); Lymphocytes # 1.3 10^3/uL (0.8-4.8); Lymphocytes % 12.4 %; Mean Corpuscular HGB Conc 34.7 g/dL (30.0-36.0); Mean Corpuscular Volume 86.5 fl (80-94); Mean Platelet Volume 11.4 fL (7.4-10.4); Monocytes # 0.6 10^3/uL (0.2-0.9); Monocytes % 5.1 %; Neutrophils # 8.83 10^3/uL (1.8-7.7); Neutrophils % 81.6 %; Nucleated Red Blood Cells % 0 %; Platelet Count 175 10^3/cmm (130-400); Red Blood Count 5.17 10^6/uL (4.1-5.3); Red Cell Distribution Width 12.4 % (12.1-15.1); White Blood Count 10.8 10^3/uL (4.0-10.0)
[2022-11-17 10:33] LABS: Alanine Aminotransferase 22 U/L (0-41); Albumin Level 4.8 g/dL (3.5-5.2); Alkaline Phosphatase 69 U/L (40-130); Anion Gap 14.7 (5-19); Aspartate Amino Transferase 20 U/L (0-40); Blood Urea Nitrogen 13 mg/dL (6-20); Calcium 9.7 mg/dL (8.5-10.5); Carbon Dioxide 27 mmol/L (22-29); Chloride 100 mmol/L (98-107); Globulin 2.5 g/dL (1.3-4.6); Glucose 98 mg/dL (65-115); Osmolality Calculated 286 mOsm/kg (285-295); Potassium 3.7 mmol/L (3.5-5.1); Sodium 138 mmol/L (136-145); Total Bilirubin 0.8 mg/dL (0.15-1.2); Total Protein 7.3 g/dL (6.6-8.7)
[2022-11-17 10:43] VITALS: BP 130/82; PULSE 74; O2SAT 100
[2022-11-17 10:55] LABS: Urine Appearance SL Hazy (CLEAR); Urine Color Yellow (Yellow)
[2022-11-17 10:56] LABS: Bilirubin Urine Neg (Negative); Blood Urine 3+ (Negative); Glucose Urine UA Norm (Normal); Ketones Urine 1+ (Negative); Leukocyte Esterase Urine Negative (Negative); Nitrate Urine Negative (Negative); Protein Urine Neg (Negative); Specific Gravity, Urine 1.025 (1.005-1.030); Urobilinogen Urine 1 mg/dL (Negative); pH Urine 6 (5-7)
[2022-11-17 10:58] VITALS: RESP 18
[2022-11-17 10:58] LABS: Add Urine Microscopic? YES; Bacteria Urine TRACE /hpf; Squamous Epithelial Cell Urine 0-4 /hpf (0-5); WBC Urine 0-4 /hpf (0-5)
[2022-11-17] MEDS: morphine 4 mg/mL SDV 1 mL IVP (10:58)
[2022-11-17 10:59] LABS: Amorphous Sediment Urine 2+ /hpf; Mucus Urine 2+ /hpf
[2022-11-17 11:00] LABS: Add Urine Culture? Yes
[2022-11-17 11:33] VITALS: BP 131/74; PULSE 82; O2SAT 99
== END 2022-11-17 11:56 | disposition home or self-care (01) ==
PROVIDERS: Emergency Provider Emergency Medicine
DX: N13.2 Hydronephrosis with renal and ureteral calculous obstruction (principal); Z87.442 Personal history of urinary calculi
CPT/HCPCS: 74176; 80053; 81001; 85025; 87086; 96361; 96374; 96375; 96376; 99285; J1885; J2270; J2405; J7030

== ENCOUNTER 2023-08-20 16:42 | Emergency (ER) | payer BC, MEDICAID, SELFPAY ==
[2023-08-20 16:52] VITALS: BP 119/84; PULSE 72; RESP 16; TEMP 36.9; O2SAT 99; BMI 19.8
--- NOTE | 2023-08-20 18:07 | CTR_ITS ---
PROCEDURE INFORMATION: Exam: CT Abdomen And Pelvis With Contrast Exam date and time: 08/20/2023 7:16 PM Age: 28 years old Clinical indication: Abdominal pain; Generalized; Additional info: Abd pain TECHNIQUE: Imaging protocol: Computed tomography of the abdomen and pelvis with contrast. Radiation optimization: All CT scans at this facility use at least one of these dose optimization techniques: automated exposure control; mA and/or kV adjustment per patient size (includes targeted exams where dose is matched to clinical indication); or iterative reconstruction. Contrast material: OMNI 350; Contrast volume: 100 ml; Contrast route: INTRAVENOUS (IV); REPORTING DATA: Count of CT and Cardiac NM exams in prior 12 months: This patient has received [address] and 0 known cardiac nuclear medicine studies in the 12 months prior to the current study. COMPARISON: CT kidney stone [id number] 11/17/2022 10:26 AM RADIATION DOSE METRICS: Total DLP (mGy-cm): 356 FINDINGS: Lungs: The visualized lung bases appear normal. Liver: The liver is normal in size. There are no enhancing liver masses. Gallbladder and bile ducts: No calcified gallstones are identified. There is no pericholecystic fluid. Pancreas: The pancreas is normal. Spleen: The spleen is normal in size and density. Adrenal glands: The adrenal glands are normal. Kidneys and ureters: Mild left hydronephrosis and ureteral dilatation, improved from the comparison examination. No evidence of an obstructive ureteral calculus. In the upper pole of the left kidney, there is a 3 mm nonobstructive calculus. Stomach and bowel: There is no evidence of small bowel or colonic obstruction. Appendix: The appendix is not identified. There are no pericecal inflammatory changes. Intraperitoneal space: No free air. No significant fluid collection. Vasculature: There are bilateral pelvic phleboliths. Lymph nodes: No enlarged retroperitoneal or mesenteric lymph nodes. Urinary bladder: The bladder shows a normal contour and is free of calcific opacities. Reproductive: Unremarkable as visualized. Bones/joints: No acute fracture. Soft tissues: Normal. CT/CT abdomen pelvis w con* [id number] IMPRESSION: 1. Mild left hydronephrosis and ureteral dilatation, improved from the comparison examination. As there is no evidence of an obstructive ureteral calculus, this may be secondary to recent passage of a ureteral calculus, urinary tract infection/pyelitis or mild residual hydronephrosis from prior ureteral obstruction. 2. A 3 mm nonobstructive calculus in the left kidney.
--- NOTE | 2023-08-20 18:07 | ED_ITS ---
HPI - Abdominal Pain General: Chief Complaint: Abdominal Pain Stated Complaint: abd pain Time Seen by Provider: 08/20/23 18:04 Source: patient Mode of arrival: ambulatory Limitations: no limitations History of Present Illness: 28-year-old male states been having right lower quadrant pain since yesterday states she had turned and return he felt a pop in his right lower quadrants had pain since then states pain is currently a 5 out of 10 denies any vomiting or diarrhea. States he is also had a spot on his right calf since he was 15 he wants looked at as well Associated Symptoms: Denies chills, diarrhea, dysuria, fever(s), nausea and vomiting Review of Systems Const: Denies: fever(s), chills, body aches or change in appetite ENMT: Denies: throat pain or dental pain Card: Denies: chest pain Resp: Denies: dyspnea GI: Reports: abdominal pain; Denies: nausea, vomiting or diarrhea : Denies: dysuria Musc: Denies: neck pain or back pain Skin/Breast: Denies: rash Neuro: Denies: headache(s) PFSH ED PFSH: Medical History Left ureteral calculus Renal colic Family History Family/Other Dementia Social History Alcohol intake: never Substance/Drug Use: never Marital status: Physical Exam Const: COMMON NORMALS: no acute distress, patient oriented x3 and healthy appearing HENMT: COMMON NORMALS: normocephalic and atraumatic HEAD & SCALP: normocephalic and atraumatic Eye: COMMON NORMALS: Equal, round and reactive pupils present and EOMs intact bilaterally PUPIL: Yes Equal, round and reactive pupils present Neck/C-Spine: COMMON NORMALS: full ROM and supple Chest: COMMONS NORMALS: normal inspection of the chest and normal palpation of entire chest wall Resp: COMMON NORMALS: normal respiratory effort, No retractions, No use of accessory muscles and clear to auscultation bilaterally AUSCULTATION: clear to auscultation bilaterally Cardio: COMMON NORMALS: regular rate, regular rhythm and No murmurs present (Cardio) RATE: regular rate RHYTHM: regular rhythm GI: COMMON NORMALS: Normal to inspection, nondistended, normoactive bowel sounds present, Soft to palpation and no masses PALPATION: Yes Soft to palpation and Yes Tenderness to palpation present (GI) Details: RLQ Extremity: COMMON NORMALS: normal to inspection and full ROM NARRATIVE EXTREMITY EXAM: Lipoma noted to right calf Neuro: COMMON NORMALS: patient oriented x3, moves all extremities and no focal motor deficits Psych: COMMON NORMALS: mental status grossly normal, Normal thought process present and cooperative THOUGHT PROCESS: Normal thought process present Skin: COMMON NORMALS: no rashes or lesions noted and no wounds GENERAL SKIN EXAM: no rashes or lesions noted Course Vital Signs: Vital signs: Vital Signs Temperature 98.4 F 08/20/23 16:52 Pulse Rate 55 L 08/20/23 20:49 Respiratory Rate 18 08/20/23 18:48 Blood Pressure 144/71 08/20/23 20:49 Pulse Oximetry 97 08/20/23 20:49 Oxygen Delivery Me thod Room Air 08/20/23 18:48 MDM - Abdominal Pain Medical Decision Making Patient presents here with abdominal pain he did recently passed a kidney stone I did request to check a urine but he states he feels much improved he reducible to go home at this time he is to follow-up with PCP and return if worsening no signs of appendicitis. Medical Records I reviewed the patient's medical records. Lab Data I reviewed the patient's lab results. 08/20/23 17:50 08/20/23 17:50 Labs/Radiology: Radiology Impressions Abdomen/Pelvis CT 08/20/23 18:07 IMPRESSION: 1. Mild left hydronephrosis and ureteral dilatation, improved from the comparison examination. As there is no evidence of an obstructive ureteral calculus, this may be secondary to recent passage of a ureteral calculus, urinary tract infection/pyelitis or mild residual hydronephrosis from prior ureteral obstruction. 2. A 3 mm nonobstructive calculus in the left kidney. Laboratory Results WBC 7.84 10^3/uL (3.29-11.43) 08/20/23 17:50 RBC 5.13 10^6/uL (3.85-5.65) 08/20/23 17:50 Hgb 15.60 g/dL (11.27-16.99) 08/20/23 17:50 Hct 45.2 % (37-53) 08/20/23 17:50 MCV 88.1 fl (82-101) 08/20/23 17:50 MCH 30.4 pg (27-33) 08/20/23 17:50 MCHC 34.5 g/dL (30-55) 08/20/23 17:50 RDW 11.9 % (12.1-15.1) L 08/20/23 17:50 Plt Count 178 10^3/cmm (157-399) 08/20/23 17:50 MPV 11.2 fL (7.4-10.4) H 08/20/23 17:50 Neut % (Auto) 61.5 % 08/20/23 17:50 Lymph % (Auto) 28.6 % 08/20/23 17:50 [place] % (Auto) 7.3 % 08/20/23 17:50 Eos % (Auto) 1.8 % 08/20/23 17:50 Baso % (Auto) 0.5 % 08/20/23 17:50 Neut # (Auto) 4.83 10^3/uL (1.8-7.7) 08/20/23 17:50 Lymph # (Auto) 2.2 10^3/uL (0.8-4.8) 08/20/23 17:50 [place] # (Auto) 0.6 10^3/uL (0.2-0.9) 08/20/23 17:50 Eos # (Auto) 0.1 10^3/uL (0.0-0.8) 08/20/23 17:50 Baso # (Auto) 0.0 10^3/uL (0.0-0.1) 08/20/23 17:50 Nucleated RBC % (auto) 0 % 08/20/23 17:50 Nucleated RBCs # 0.0 /100WBC 08/20/23 17:50 Sodium 139 mmol/L (136-145) 08/20/23 17:50 Potassium 3.8 mmol/L (3.5-5.1) 08/20/23 17:50 Chloride 104 mmol/L (98-107) 08/20/23 17:50 Carbon Dioxide 28 mmol/L (22-29) 08/20/23 17:50 Anion Gap 10.8 (5-19) 08/20/23 17:50 BUN 10 mg/dL (6-20) 08/20/23 17:50 Creatinine 0.9 mg/dL (0.7-1.2) 08/20/23 17:50 GFR Calculation 99.8 mL/min (90-130) 08/20/23 17:50 Glucose 86 mg/dL (65-115) 08/20/23 17:50 Calculated Osmolality 286 mOsm/kg (285-295) 08/20/23 17:50 Calcium 9.2 mg/dL (8.5-10.5) 08/20/23 17:50 Total Bilirubin 0.7 mg/dL (0.15-1.2) 08/20/23 17:50 AST 17 U/L (0-40) 08/20/23 17:50 ALT 16 U/L (0-41) 08/20/23 17:50 Alkaline Phosphatase 62 U/L (40-130) 08/20/23 17:50 Total Protein 7.7 g/dL (6.6-8.7) 08/20/23 17:50 Albumin 4.6 g/dL (3.5-5.2) 08/20/23 17:50 Globulin 3.1 g/dL (1.3-4.6) 08/20/23 17:50 Lipase 65 U/L (13-60) H 08/20/23 17:50 All radiology interpretation(s) finalized by discharge Discharge Plan Discharge Patient Disposition: Home Clinical Impression: Abdominal pain Condition: Stable Prescriptions: New Naprosyn 500 mg tablet 500 mg PO BID PRN (Reason: pain) Qty: 20 0RF No Action Tylenol Ex Str Rapid Release 500 mg Tablet 1,000 mg PO Q6H PRN (Reason: Pain) ibuprofen 200 mg Tablet 400 mg PO Q6H PRN (Reason: Pain) Octaviano Back and Body 500-32.5 mg Tablet 1 tab PO BID PRN (Reason: Pain) hydrocodone-acetaminophen 5-325 mg tablet 1 tab PO Q6H PRN (Reason: pain) Qty: 10 0RF Discharge Orders: Discharge ED (Routine); Ordered 08/20/23 Ordered By: Porfirio Ramos Discharge Diet: Advance as tolerated Discharge Activity: Resume usual activity Patient Instructions: Abdominal Pain (ED) Coding Level of Care Code ED Director Of Conservation for Declan Hartley
[2023-08-20 18:14] LABS: Basophils % 0.5 %; Eosinophils # 0.1 10^3/uL (0.0-0.8); Eosinophils % 1.8 %; Hematocrit 45.2 % (37-53); Lymphocytes # 2.2 10^3/uL (0.8-4.8); Lymphocytes % 28.6 %; Mean Corpuscular HGB Conc 34.5 g/dL (30-55); Mean Corpuscular Hemoglobin 30.4 pg (27-33); Mean Corpuscular Volume 88.1 fl (82-101); Mean Platelet Volume 11.2 fL (7.4-10.4); Monocytes # 0.6 10^3/uL (0.2-0.9); Monocytes % 7.3 %; Neutrophils # 4.83 10^3/uL (1.8-7.7); Neutrophils % 61.5 %; Nucleated Red Blood Cells % 0 %; Platelet Count 178 10^3/cmm (157-399); Red Blood Count 5.13 10^6/uL (3.85-5.65); Red Cell Distribution Width 11.9 % (12.1-15.1); White Blood Count 7.84 10^3/uL (3.29-11.43)
[2023-08-20 18:15] VITALS: BP 123/92; PULSE 72; RESP 18; O2SAT 99
[2023-08-20 18:26] VITALS: RESP 18; O2SAT 100
[2023-08-20] MEDS: ondansetron 2 mg/ML SDV 2 mL 4 MG IVP (18:26)
[2023-08-20] MEDS: morphine 4 mg/mL SDV 1 mL IVP (18:26)
[2023-08-20 18:36] LABS: Alanine Aminotransferase 16 U/L (0-41); Albumin Level 4.6 g/dL (3.5-5.2); Alkaline Phosphatase 62 U/L (40-130); Anion Gap 10.8 (5-19); Aspartate Amino Transferase 17 U/L (0-40); Blood Urea Nitrogen 10 mg/dL (6-20); Calcium 9.2 mg/dL (8.5-10.5); Carbon Dioxide 28 mmol/L (22-29); Chloride 104 mmol/L (98-107); Creatinine Clr Calc Pharmacy 110.7033; Globulin 3.1 g/dL (1.3-4.6); Glomerular Filtration Rate 99.8 mL/min (90-130); Glucose 86 mg/dL (65-115); Lipase 65 U/L (13-60); Osmolality Calculated 286 mOsm/kg (285-295); Potassium 3.8 mmol/L (3.5-5.1); Sodium 139 mmol/L (136-145); Total Bilirubin 0.7 mg/dL (0.15-1.2); Total Protein 7.7 g/dL (6.6-8.7)
[2023-08-20 18:48] VITALS: BP 108/79; PULSE 67; RESP 18; O2SAT 97
[2023-08-20 20:49] VITALS: BP 144/71; PULSE 55; O2SAT 97
== END 2023-08-20 20:51 | disposition home or self-care (01) ==
PROVIDERS: Emergency Provider Emergency Medicine
DX: N13.2 Hydronephrosis with renal and ureteral calculous obstruction (principal); Z87.442 Personal history of urinary calculi
CPT/HCPCS: 36415; 74177; 80053; 83690; 85025; 96374; 96375; 99284; 99285; J2270; J2405; Q9967

== ENCOUNTER 2024-03-02 08:39 | Emergency (ER) | payer BC, MEDICAID, SELFPAY ==
[2024-03-02 09:43] VITALS: BP 117/78; PULSE 65; RESP 18; TEMP 36.6; O2SAT 98
[2024-03-02 11:40] LABS: Basophils % 0.4 %; Eosinophils % 0.4 %; Hematocrit 45.7 % (37-53); Lymphocytes # 1.5 10^3/uL (0.8-4.8); Lymphocytes % 18.7 %; Mean Corpuscular HGB Conc 34.1 g/dL (30-55); Mean Corpuscular Hemoglobin 30.2 pg (27-33); Mean Corpuscular Volume 88.6 fl (82-101); Mean Platelet Volume 11.1 fL (7.4-10.4); Monocytes # 0.5 10^3/uL (0.2-0.9); Monocytes % 5.8 %; Neutrophils # 6.09 10^3/uL (1.8-7.7); Neutrophils % 74.5 %; Nucleated Red Blood Cells % 0 %; Platelet Count 187 10^3/cmm (157-399); Red Blood Count 5.16 10^6/uL (3.85-5.65); Red Cell Distribution Width 12.3 % (12.1-15.1); White Blood Count 8.17 10^3/uL (3.29-11.43)
[2024-03-02 11:50] VITALS: BP 119/76; PULSE 67; RESP 16; O2SAT 100
--- NOTE | 2024-03-02 11:59 | CT_ITS ---
WS: [id number] CT ABDOMEN PELVIS TECHNIQUE: Contrast-enhanced CT of the abdomen and pelvis with coronal and sagittal reformatted image s. CLINICAL INFORMATION: abd pain COMPARISON: None. DLP: 358.[address] scans at [facility] use at least one of these dose optimization techniques: automated e xposure control; mA and/or kV adjustment per patient size (includes targeted exams where dose is matc hed to clinical indication); or iterative reconstruction. FINDINGS: Mild wall thickening with slight induration involving the colon extending to the sigmoid co armando suspicious for mild infectious or inflammatory colitis. Recommend correlation with clinical sympt oms. Lung bases are well aerated.Mild diffuse fatty infiltration of the liver. Normal portal vein and sple joshua vein. Normal spleen. Normal GE junction. Adrenal glands are normal. Prominent LEFT renal pelvis u nchanged compared to previous. Normal renal parenchymal enhancement. Tiny nonobstructing LEFT renal p arenchymal calculus. Adrenal glands are normal. No obstructing renal or ureteral calculi. Normal caliber abdominal aorta. Celiac and SMA are patent. Normal pancreatic parenchymal enhancement. No evidence of small or large bowel obstruction. Normal appendix. Prominent prostate for a patient t his age but measuring 4.[address]/CT abdomen pelvis w con* [id number] IMPRESSION: 1. Mild wall thickening with slight induration involving the colon suspicious for mild infectious or inflammatory colitis. Recommend correlation with colitis symptoms. 2. Normal appendix. 3. Prominent prostate for patient this age measuring 4.2 cm. Recommend correla tion PSA. 4. No other acute findings.
[2024-03-02 12:00] LABS: Alanine Aminotransferase 12 U/L (0-41); Albumin Level 4.3 g/dL (3.5-5.2); Alkaline Phosphatase 57 U/L (40-130); Anion Gap 12.8 (5-19); Aspartate Amino Transferase 13 U/L (0-40); Blood Urea Nitrogen 12 mg/dL (6-20); Calcium 9.2 mg/dL (8.5-10.5); Carbon Dioxide 27 mmol/L (22-29); Chloride 105 mmol/L (98-107); Globulin 3.4 g/dL (1.3-4.6); Glomerular Filtration Rate 99.8 mL/min (90-130); Glucose 85 mg/dL (65-115); Lipase 70 U/L (13-60); Osmolality Calculated 289 mOsm/kg (285-295); Potassium 4.8 mmol/L (3.5-5.1); Sodium 140 mmol/L (136-145); Total Bilirubin 0.5 mg/dL (0.15-1.2); Total Protein 7.7 g/dL (6.6-8.7)
[2024-03-02 12:04] LABS: Add Urine Microscopic? NO; Charge for UA Resulting for Rev
[2024-03-02 12:08] VITALS: BP 124/79; PULSE 64; RESP 16; O2SAT 100
[2024-03-02 12:10] LABS: Bilirubin Urine Neg (Negative); Blood Urine Neg (Negative); Glucose Urine UA Norm (Normal); Ketones Urine Negative (Negative); Leukocyte Esterase Urine Negative (Negative); Nitrate Urine Negative (Negative); Protein Urine Neg (Negative); Urine Appearance Clear (CLEAR); Urine Color Yellow (Yellow); Urobilinogen Urine Norm (Negative); pH Urine 6 (5-7)
--- NOTE | 2024-03-02 12:11 | ED_ITS ---
HPI - Abdominal Pain 2 General: Chief Complaint: Abdominal Pain Stated Complaint: ABD Pain Time Seen by Provider: 03/02/24 11:48 Source: patient Mode of arrival: ambulatory Limitations: no limitations History of Present Illness: 28-year-old male states has been having some intermittent abdominal pains along with loose stools for the last 3 months. He states he is in no pain currently and denies any fevers. Denies any worse improving factors. Associated Symptoms: Reports diarrhea and nausea; Denies chills, dysuria, fever(s) and vomiting Review of Systems 2 Const: Denies: fever(s), chills, body aches or change in appetite ENMT: Denies: throat pain or dental pain Card: Denies: chest pain Resp: Denies: dyspnea GI: Reports: abdominal pain, nausea and diarrhea; Denies: vomiting : Denies: dysuria Musc: Denies: neck pain or back pain Skin/Breast: Denies: rash Neuro: Denies: headache(s) PFSH ED 2 PFSH: Medical History Left ureteral calculus Renal colic Family History Family/Other Dementia Social History Alcohol intake: never Substance/Drug Use: never Marital status: Physical Exam 2 Const: COMMON NORMALS: no acute distress, patient oriented x3 and healthy appearing HENMT: COMMON NORMALS: normocephalic and atraumatic HEAD & SCALP: n ormocephalic and atraumatic Neck/C-Spine: COMMON NORMALS: full ROM and supple Chest: COMMONS NORMALS: normal inspection of the chest Resp: COMMON NORMALS: normal respiratory effort, No retractions, No use of accessory muscles and clear to auscultation bilaterally AUSCULTATION: clear to auscultation bilaterally Cardio: COMMON NORMALS: regular rate, regular rhythm and No murmurs present (Cardio) RATE: regular rate RHYTHM: regular rhythm GI: COMMON NORMALS: Normal to inspection, nondistended, normoactive bowel sounds present, Soft to palpation, non-tender and no masses PALPATION: Yes Soft to palpation Extremity: COMMON NORMALS: normal to inspection and full ROM Neuro: COMMON NORMALS: patient oriented x3, moves all extremities and no focal motor deficits Psych: COMMON NORMALS: mental status grossly normal, Normal thought process present and cooperative THOUGHT PROCESS: Normal thought process present Skin: COMMON NORMALS: no rashes or lesions noted and no wounds GENERAL SKIN EXAM: no rashes or lesions noted Course 2 Vital Signs: Vital signs: Vital Signs Temperature 97.9 F 03/02/24 09:43 Pulse Rate 64 03/02/24 12:08 Respiratory Rate 16 03/02/24 12:08 Blood Pressure 124/79 03/02/24 12:08 Pulse Oximetry 100 03/02/24 12:08 Oxygen Delivery Me thod Room Air 03/02/24 12:08 MDM - Abdominal Pain Medical Decision Making Patient presents here with abdominal pain some diarrhea his CT here showed a possible colitis we will start him on Cipro Flagyl he likely needs a colonoscopy outpatient as well we will get him follow-up with surgery he is return if worsening he understands agrees to plan Medical Records I reviewed the patient's medical records. Lab Data I reviewed the patient's lab results. 03/02/24 11:17 03/02/24 11:17 Labs/Radiology: Radiology Impressions Abdomen/Pelvis CT 03/02/24 11:59 IMPRESSION: 1. Mild wall thickening with slight induration involving the colon suspicious for mild infectious or inflammatory colitis. Recommend correlation with colitis symptoms. 2. Normal appendix. 3. Prominent prostate for patient this age measuring 4.2 cm. Recommend correlation PSA. 4. No other acute findings. Laboratory Results WBC 8.17 10^3/uL (3.29-11.43) 03/02/24 11:17 RBC 5.16 10^6/uL (3.85-5.65) 03/02/24 11:17 Hgb 15.60 g/dL (11.27-16.99) 03/02/24 11:17 Hct 45.7 % (37-53) 03/02/24 11:17 MCV 88.6 fl (82-101) 03/02/24 11:17 MCH 30.2 pg (27-33) 03/02/24 11:17 MCHC 34.1 g/dL (30-55) 03/02/24 11:17 RDW 12.3 % (12.1-15.1) 03/02/24 11:17 Plt Count 187 10^3/cmm (157-399) 03/02/24 11:17 MPV 11.1 fL (7.4-10.4) H 03/02/24 11:17 Neut % (Auto) 74.5 % 03/02/24 11:17 Lymph % (Auto) 18.7 % 03/02/24 11:17 [place] % (Auto) 5.8 % 03/02/24 11:17 Eos % (Auto) 0.4 % 03/02/24 11:17 Baso % (Auto) 0.4 % 03/02/24 11:17 Neut # (Auto) 6.09 10^3/uL (1.8-7.7) 03/02/24 11:17 Lymph # (Auto) 1.5 10^3/uL (0.8-4.8) 03/02/24 11:17 [place] # (Auto) 0.5 10^3/uL (0.2-0.9) 03/02/24 11:17 Eos # (Auto) 0.0 10^3/uL (0.0-0.8) 03/02/24 11:17 Baso # (Auto) 0.0 10^3/uL (0.0-0.1) 03/02/24 11:17 Nucleated RBC % (auto) 0 % 03/02/24 11:17 Nucleated RBCs # 0.0 /100WBC 03/02/24 11:17 Sodium 140 mmol/L (136-145) 03/02/24 11:17 Potassium 4.8 mmol/L (3.5-5.1) 03/02/24 11:17 Chloride 105 mmol/L (98-107) 03/02/24 11:17 Carbon Dioxide 27 mmol/L (22-29) 03/02/24 11:17 Anion Gap 12.8 (5-19) 03/02/24 11:17 BUN 12 mg/dL (6-20) 03/02/24 11:17 Creatinine 0.9 mg/dL (0.7-1.2) 03/02/24 11:17 GFR Calculation 99.8 mL/min (90-130) 03/02/24 11:17 Glucose 85 mg/dL (65-115) 03/02/24 11:17 Calculated Osmolality 289 mOsm/kg (285-295) 03/02/24 11:17 Calcium 9.2 mg/dL (8.5-10.5) 03/02/24 11:17 Total Bilirubin 0.5 mg/dL (0.15-1.2) 03/02/24 11:17 AST 13 U/L (0-40) 03/02/24 11:17 ALT 12 U/L (0-41) 03/02/24 11:17 Alkaline Phosphatase 57 U/L (40-130) 03/02/24 11:17 Total Protein 7.7 g/dL (6.6-8.7) 03/02/24 11:17 Albumin 4.3 g/dL (3.5-5.2) 03/02/24 11:17 Globulin 3.4 g/dL (1.3-4.6) 03/02/24 11:17 Lipase 70 U/L (13-60) H 03/02/24 11:17 Urine Color Yellow (Yellow) 03/02/24 11:53 Urine Appearance Clear (CLEAR) 03/02/24 11:53 Urine pH 6 (5-7) 03/02/24 11:53 Ur Specific [place] 1.010 (1.005-1.030) 03/02/24 11:53 Urine Protein Neg (Negative) 03/02/24 11:53 Urine Glucose (UA) Norm (Normal) 03/02/24 11:53 Urine Ketones Negative (Negative) 03/02/24 11:53 Urine Blood Neg (Negative) 03/02/24 11:53 Urine Nitrate Negative (Negative) 03/02/24 11:53 Urine Bilirubin Neg (Negative) 03/02/24 11:53 Urine Urobilinogen Norm mg/dL (Negative) 03/02/24 11:53 Ur Leukocyte Esterase Negative (Negative) 03/02/24 11:53 All radiology interpretation(s) finalized by discharge Discharge Plan Discharge Patient Disposition: Home Clinical Impression: Colitis Condition: Stable Prescriptions: New metronidazole 500 mg tablet 500 mg PO Q8H 7 Days Qty: 21 0RF Cipro 500 mg tablet 500 mg PO BID Qty: 14 0RF No Action acetaminophen [Tylenol Ex Str Rapid Release] 500 mg Tablet 1,000 mg PO Q6H PRN (Reason: Pain) ibuprofen 200 mg Tablet 400 mg PO Q6H PRN (Reason: Pain) Octaviano Back and Body 500-32.5 mg Tablet 1 tab PO BID PRN (Reason: Pain) Discharge Orders: Discharge ED (Routine); Ordered 03/02/24 Ordered By: Porfirio Ramos Discharge Diet: Advance as tolerated Discharge Activity: Resume usual activity Patient Instructions: Colitis (ED) Coding Level of Care Code ED Weigher And Grader for Declan Hartley
[2024-03-02] MEDS: iohexol 350 mg/mL 500 mL Btl (per mL) IV (12:24)
--- NOTE | 2024-03-02 13:51 | PC.NURSE ---
PRINTER HAS BEEN DOWN FOR 30 MINUTES, [facility] AWARE AND WORKING IT.
[2024-03-02 13:53] VITALS: BP 111/74; O2SAT 100
--- NOTE | 2024-03-03 07:29 | DCPLANNER ---
messaged gen surg for er f/u
== END 2024-03-02 14:27 | disposition home or self-care (01) ==
PROVIDERS: Emergency Provider Emergency Medicine
DX: K52.9 Noninfective gastroenteritis and colitis, unspecified (principal)
CPT/HCPCS: 36415; 74177; 80053; 81003; 83690; 85025; 99285; Q9967

== ENCOUNTER 2024-03-29 10:24 | Day surgery (SDC) | payer BC, MEDICAID, SELFPAY ==
[2024-03-29] VITALS (11 sets, daily range): BP systolic 85–136; BP diastolic 45–84; PULSE 56–67; RESP 14–18; TEMP 36.3–36.8; O2SAT 98–100
--- NOTE | 2024-03-29 10:52 | ANES.PREANE2 ---
Pre-Anesthetic Assessment Height/Weight: Height 1.73 m Weight 58.967 kg Temp Pulse Resp BP Pulse Ox O2 Del Method 98.2 F 64 18 136/84 99 Room Air 03/29/24 10:38 03/29/24 10:38 03/29/24 10:38 03/29/24 10:38 03/29/24 10:38 03/29/24 10:38 Operation Date: 03/29/24 12:15 Proposed Procedures p excision of subcutaneous mass of right leg [id number], R22.9(Right) - Domo Armstrong DO Familial anesthetic complications: None Was Beta Jefry taken within 24 hours: N/A Was Clonidine taken within 24 hours: N/A Last intake: Intake Last Liquid Date 03/28/24 Last Liquid Time 22:00 Last Solid Date 03/28/24 Last Solid Time 18:30 Social Tobacco (dip) and No alcohol Exam alert, oriented x 3, clear to auscultation bilaterally and regular rate & rhythm Airway Mallampati: Class I Dentition: chipped (molars broken) Anesthetic Plan ASA status: 1 Anesthesia: General Risk of > 500 ml blood loss (7ml/kg in children): No Medications/Allergies Home Medications Medication Instructions Recorded Confirmed Last Taken Type acetaminophen 500 mg tablet 1,000 mg PO Q6H PRN Pain 11/17/22 03/28/24 03/15/24 History aspirin-caffeine 500 mg-32.5 mg 1 tab PO BID PRN Pain 11/17/22 03/28/24 Unknown History tablet (Octaviano Back and Body) ibuprofen 200 mg tablet 400 mg PO Q6H PRN Pain 11/17/22 03/28/24 03/21/24 History Allergies Allergy/AdvReac Type Severity Reaction Status Date / Time No Known Allergies Allergy Verified 03/14/24 14:23 PFSH Anesthesia Medical History Left ureteral calculus Renal colic Family History Family/Other Dementia Social History Alcohol intake: never Substance/Drug Use: never Marital status: Data Anesthesia Cardiac Studies: No Data to Display
[2024-03-29] MEDS: sodium chloride 0.9% 1,000 ML 30 ML IV (11:01)
--- NOTE | 2024-03-29 11:29 | W.PM.OPSUD ---
Surgery/Procedure H&P Update DATE OF PROCEDURE: March 29, 2024 DATE H&P PERFORMED: 03/14/24 H&P UPDATE INFORMATION: I have reviewed H&P completed within last 30 days, I have examined patient prior to procedure and No changes to prior documentation PLANNED PROCEDURE: Operation Date: 03/29/24 12:15 Proposed Procedures p excision of subcutaneous mass of right leg [id number], R22.9(Right) - Domo Armstrong DO
[2024-03-29] MEDS: ceFAZolin 2,000 MG in sodium chloride 0.9% (plus) 50 ML 100 MG IV (11:39)
[2024-03-29] MEDS: lidocaine-epi 1% 20 mL INJ INJECTION (12:18)
--- NOTE | 2024-03-29 12:19 | PM.OP ---
Operative Report Date of procedure: March 29, 2024 Pre-op diagnosis: Subcutaneous mass right leg Post-op diagnosis: same Procedure done: Excision of subcutaneous mass right leg measuring 4.5 x 4 x 3 cm Implants: None Specimens removed/disposition: Subcutaneous mass of right leg Surgeon: Domo Armstrong DO Anesthesia: MAC and Local Estimated blood loss (mL): 5 Complications: None apparent Brief History: This is a very pleasant 28-year-old gentleman who presented my office with a years long history of enlarging subcutaneous mass of his posterior right leg. He desired excision. The risk and benefits were explained and documented. Procedure: The area was inspected prepped and draped in the usual sterile fashion. A timeout was performed. All present were in agreement. 2% lidocaine with epinephrine was used anesthetize the area over the lesion on the posterior right leg. MAC was performed by department of anesthesia. An elliptical excision measuring 4.5 cm in length was performed transversely over the lesion with a 10 blade scalpel. With electrocautery. Mass was removed dissection was carried down to a cystic mass en bloc. Hemostasis was controlled with electrocautery. Wound was irrigated. Specimen was passed off. Skin was closed with 3-0 nylon in simple interrupted and vertical mattress fashions. Sterile bandages applied. Patient tolerated procedure well.
--- NOTE | 2024-03-29 13:40 | ANE.PACU2 ---
Inpatient post-anesthesia follow up: Airway intact: Yes Vital signs: Temperature 97.6 F Pulse Rate 61 Respiratory Rate 16 Blood Pressure 105/69 Pulse Oximetry 100 Oxygen Delivery Me thod Room Air Oxygen Flow Rate 6 Fraction of Inspir ed Oxygen Hydration adequate: Yes Nausea and vomiting: No Pain level: 1 Mental status: Baseline
== END 2024-03-29 13:40 | disposition home or self-care (01) ==
PROVIDERS: Visit Provider Surgery
PROC: (CPT 11406; principal; 2024-03-29 12:15)
DX: L72.0 Epidermal cyst (principal); K52.9 Noninfective gastroenteritis and colitis, unspecified; R10.9 Unspecified abdominal pain; R22.9 Localized swelling, mass and lump, unspecified
CPT/HCPCS: 11406; 88307; J0690; J1100; J2250; J2405; J2704; J3010; J7030

== ENCOUNTER 2024-05-04 06:39 | Day surgery (SDC) | payer BC, MEDICAID, SELFPAY ==
[2024-05-04 06:48] VITALS: BP 130/77; PULSE 90; RESP 18; TEMP 36.2; O2SAT 96; BMI 19.9
[2024-05-04] MEDS: sodium chloride 0.9% 1,000 ML 30 ML IV (06:56)
--- NOTE | 2024-05-04 07:05 | ANES.PREANE2 ---
Pre-Anesthetic Assessment Height/Weight: Height 1.75 m Weight 61.235 kg Temp Pulse Resp BP Pulse Ox O2 Del Method 97.1 F L 90 18 130/77 96 Room Air 05/04/24 06:48 05/04/24 06:48 05/04/24 06:48 05/04/24 06:48 05/04/24 06:48 05/04/24 06:48 Operation Date: 05/04/24 07:30 Proposed Procedures p Colonoscopy 94439, G0105, K52.9, R10.9(Not Applicable) - Domo Armstrong DO Familial anesthetic complications: None Was Beta Jefry taken within 24 hours: N/A Was Clonidine taken within 24 hours: N/A Last intake: Intake Last Liquid Date 05/03/24 Last Liquid Time 22:00 Last Solid Date 05/02/24 Last Solid Time 21:00 Social Tobacco and No alcohol Exam alert, oriented x 3, clear to auscultation bilaterally and regular rate & rhythm Airway Mallampati: Class II Dentition: other (molars missing) Anesthetic Plan ASA status: 1 Anesthesia: MAC Risk of > 500 ml blood loss (7ml/kg in children): No Medications/Allergies Home Medications Medication Instructions Recorded Confirmed Last Taken Type hydrocodone 7.5 mg-acetaminophen 1 tab PO Q6H PRN pain #20 tabs 03/29/24 05/02/24 Unknown Rx 325 mg tablet dicyclomine 20 mg tablet 20 mg PO QID 30 days #120 tabs 04/14/24 05/02/24 04/30/24 Rx Allergies Allergy/AdvReac Type Severity Reaction Status Date / Time No Known Allergies Allergy Verified 05/02/24 10:53 Current Medications Generic Name Dose Route Start Last Admin Trade Name Freq PRN Reason Stop Dose Admin Sodium Chloride 1,000 mls @ 30 mls/hr 05/04/24 06:45 05/04/24 06:56 Sodium Chloride 0.9% IV 05/05/24 06:44 30 mls/hr .Q24H MJ Administration PFSH Anesthesia Medical History (Updated 04/18/24 @ 23:26 by Domo Armstrong DO) IBS (irritable bowel syndrome) Left ureteral calculus Renal colic Surgical History (Updated 04/18/24 @ 23:25 by Domo Armstrong DO) H/O excision of epidermal inclusion cyst Family History Family/Other Dementia Social History Smoking and tobacco/nicotine status: former use of tobacco/nicotine Alcohol intake: never Substance/Drug Use: never Marital status: Data Anesthesia Cardiac Studies: No Data to Display
--- NOTE | 2024-05-04 07:07 | PM.HP ---
Providers/Chief Complaint Chief Complaint: K52.9, R10.9 History of Present Illness Ronnie Calhoun is a 28 year old male Review of Systems General: Reports: 10 or more systems reviewed and unremarkable except in HPI and below Medications/Allergies Home Medications Medication Instructions Recorded Confirmed Last Taken Type hydrocodone 7.5 mg-acetaminophen 1 tab PO Q6H PRN pain #20 tabs 03/29/24 05/02/24 Unknown Rx 325 mg tablet dicyclomine 20 mg tablet 20 mg PO QID 30 days #120 tabs 04/14/24 05/02/24 04/30/24 Rx Allergies Allergy/AdvReac Type Severity Reaction Status Date / Time No Known Allergies Allergy Verified 05/02/24 10:53 PFSH Acute PFSH: Medical History (Updated 04/18/24 @ 23:26 by Domo Armstrong DO) IBS (irritable bowel syndrome) Left ureteral calculus Renal colic Surgical History (Updated 04/18/24 @ 23:25 by Domo Armstrong DO) H/O excision of epidermal inclusion cyst Family History Family/Other Dementia Social History Smoking and tobacco/nicotine status: former use of tobacco/nicotine Alcohol intake: never Substance/Drug Use: never Marital status: Vitals/I&O/Wt Last Vital Signs Temp 97.1 F L 05/04/24 06:48 Pulse 90 05/04/24 06:48 Resp 18 05/04/24 06:48 BP 130/77 05/04/24 06:48 Pulse Ox 96 05/04/24 06:48 O2 Del Method Room Air 05/04/24 06:48 Weight last 48 hrs Weight 135 lb A&P Assessment and plan (1) Abdominal pain: (2) Chronic diarrhea: Plan Diagnostic colonoscopy with random biopsies Attestations Medical Necessity Statement*: HOME Coding Level of Care Code Acute Code for Chg Fwd Diagnoses Abdominal pain R10.9 Chronic diarrhea K52.9
[2024-05-04 07:55] VITALS: BP 115/72; PULSE 68; RESP 12; TEMP 36.3; O2SAT 99
[2024-05-04 08:10] VITALS: BP 119/70; PULSE 74; RESP 16; O2SAT 99
--- NOTE | 2024-05-04 08:50 | ANE.PACU2 ---
Inpatient post-anesthesia follow up: Airway intact: Yes Vital signs: Temperature 97.3 F Pulse Rate 74 Respiratory Rate 16 Blood Pressure 119/70 Pulse Oximetry 99 Oxygen Delivery Me thod Room Air Oxygen Flow Rate 9 Fraction of Inspir ed Oxygen Hydration adequate: Yes Nausea and vomiting: No Pain level: 1 Mental status: Baseline
[2024-05-04 09:25] LABS: C.Diff PCR (Lab) NEGATIVE (Negative)
== END 2024-05-04 08:50 | disposition home or self-care (01) ==
PROVIDERS: Visit Provider Surgery
PROC: 0DJD8ZZ Inspection of Lower Intestinal Tract, Via Natural or Artificial Opening Endoscopic (ICD-10-PCS; CPT 45378; principal; 2024-05-04 07:30)
DX: K52.9 Noninfective gastroenteritis and colitis, unspecified (principal); R10.9 Unspecified abdominal pain; Z87.891 Personal history of nicotine dependence
CPT/HCPCS: 45380; 82274; 83630; 87045; 87177; 87209; 87427; 87449; 87493; 88305; J2704; J3490; J7030

== ENCOUNTER 2024-05-29 13:52 | Inpatient (IN) | payer BC, SELFPAY ==
[2024-05-29] VITALS (9 sets, daily range): BP systolic 101–133; BP diastolic 58–78; PULSE 103–122; RESP 16–18; TEMP 38.3–39.4; O2SAT 94–100; BMI 19.2
[2024-05-29 15:03] LABS: Hematocrit 41.2 % (37-53); Lymphocytes # 0.7 10^3/uL (0.8-4.8); Lymphocytes % 87.3 %; Mean Corpuscular HGB Conc 33.7 g/dL (30-55); Mean Corpuscular Volume 85.8 fl (82-101); Mean Platelet Volume 10.2 fL (7.4-10.4); Monocytes # 0.1 10^3/uL (0.2-0.9); Monocytes % 10.1 %; Neutrophils % 2.6 %; Nucleated Red Blood Cells % 0 %; Platelet Count 136 10^3/cmm (157-399); Red Cell Distribution Width 11.8 % (12.1-15.1)
--- NOTE | 2024-05-29 15:14 | XRR_ITS ---
PROCEDURE INFORMATION: Exam: XR Chest Exam date and time: 05/29/2024 3:25 PM Age: 29 years old Clinical indication: Cough and dyspnea; Additional info: Dyspnea/cough TECHNIQUE: Imaging protocol: Radiologic exam of the chest. Views: 1 view. COMPARISON: CT abdomen pelvis w con* [id number] 03/02/2024 12:20 PM FINDINGS: Lungs: Unremarkable. No consolidation. Pleural spaces: Unremarkable. No pleural effusion. No pneumothorax. Heart/Mediastinum: Unremarkable. No cardiomegaly. Bones/joints: Unremarkable. XR/XR chest 1V portable [id number] IMPRESSION: No acute findings.
--- NOTE | 2024-05-29 15:14 | ED_ITS ---
HPI - Dizziness 2 General: Chief Complaint: Dizziness Stated Complaint: possible allergic reaction Time Seen by Provider: 05/29/24 14:34 History of Present Illness: HPI Narrative: 29-year-old male presents emergency room with complaints of nausea vomiting abdominal discomfort for the last several days it has been worsening today exacerbating low-grade fever and is significantly tachycardic. He has a history of Crohn's disease on sulfasalazine and dicyclomine. He denies any hematemesis or coffee-ground emesis had decreased urinary output but no dysuria urgency or frequency or hematuria. He denies chest pain he has had a little bit of a cough has been mildly productive no hemoptysis Associated symptoms: Reports chills, malaise, nausea and vomiting; Denies chest pain Related Data Previous Rx's Medication Instructions Recorded dicyclomine 20 mg tablet 40 mg (2 x 20 mg) PO QID 30 days 05/23/24 #240 tabs sulfasalazine 500 mg 1.5 g (3 x 500 mg) PO BID 30 days 05/23/24 tablet,delayed release #180 tabs Allergies Allergy/AdvReac Type Severity Reaction Status Date / Time No Known Allergies Allergy Verified 05/29/24 14:02 Review of Systems 2 Const: Reports: fever(s), chills, change in appetite, fatigue and malaise Card: Denies: chest pain Resp: Denies: dyspnea GI: Reports: abdominal pain, nausea and vomiting; Denies: hematemesis, coffee ground emesis, hematochezia, melena or mucus in stool : Denies: dysuria, urinary frequency or urinary urgency Musc: Denies: neck pain or back pain Skin/Breast: Denies: rash PFSH ED 2 PFSH: Medical History IBS (irritable bowel syndrome) Left ureteral calculus Renal colic Surgical History H/O excision of epidermal inclusion cyst Family History Family/Other Dementia Social History Smoking and tobacco/nicotine status: former use of tobacco/nicotine Alcohol intake: never Substance/Drug Use: never Marital status: Physical Exam 2 Const: GENERAL APPEARANCE: cooperative ORIENTATION/CONSCIOUSNESS: Yes awake, Yes oriented to person, Yes oriented to place and Yes oriented to time HENMT: COMMON NORMALS: normocephalic, atraumatic and hearing grossly normal bilaterally HEAD & SCALP: normocephalic and atraumatic Resp: COMMON NORMALS: normal respiratory effort, No retractions, No use of accessory muscles and clear to auscultation bilaterally AUSCULTATION: clear to auscultation bilaterally Cardio: COMMON NORMALS: regular rate, regular rhythm and No murmurs present (Cardio) RATE: regular rate RHYTHM: regular rhythm GI: COMMON NORMALS: Soft to palpation and No hepatosplenomegaly present A USCULTATION: Yes normoactive bowel sounds PALPATION: Yes Soft to palpation, No Tenderness to palpation present (GI), No Guarding due to palpation present (GI) and Yes No hepatosplenomegaly present Extremity: COMMON NORMALS: normal to inspection, capillary refill normal, no clubbing, cyanosis or edema, no calf tenderness and no pedal edema Neuro: SENSORIUM/ORIENTATION: Yes oriented to person, Yes oriented to place and Yes oriented to time Skin: COMMON NORMALS: no rashes or lesions noted GENERAL SKIN EXAM: no rashes or lesions noted Course 2 Vital Signs: Vital signs: Vital Signs Temperature 100.8 F H 05/30/24 04:00 Pulse Rate 102 H 05/30/24 06:00 Respiratory Rate 17 05/30/24 04:00 Blood Pressure 105/62 05/30/24 04:00 Pulse Oximetry 97 05/30/24 04:00 Oxygen Delivery Me thod Room Air 05/30/24 04:00 [facility] - Dizziness Medical Decision Making Patient is significant neutropenia with a fever. He is not having any diarrhea or hematochezia. CT of the abdomen did not have any clinically relevant findings. There are some chronic findings present there was previously some colonic mucosal thickening that has resolved. Will admit for fever of unknown origin with neutropenia. Could be the sulfasalazine is causing this. Discussed with hospitalist and with the patient orders are written initiated on cefepime Lab Data 05/30/24 05:01 05/30/24 05:01 Radiology Impressions Chest X-Ray 05/29/24 15:14 IMPRESSION: No acute findings. Abdomen/Pelvis CT 05/29/24 15:39 IMPRESSION: 1. Stable nonobstructing left nephrolithiasis measuring up to 4 mL. 2. Similar mild left pelviectasis and prominence of the calices. This is a chronic finding. 3. Resolution of previously seen colonic mural thickening. 4. Moderate colonic stool may represent constipation. Laboratory Results WBC 0.79 10^3/uL (3.29-11.43) L* 05/29/24 14:52 RBC 4.80 10^6/uL (3.85-5.65) 05/29/24 14:52 Hgb 13.90 g/dL (11.27-16.99) 05/29/24 14:52 Hct 41.2 % (37-53) 05/29/24 14:52 MCV 85.8 fl (82-101) 05/29/24 14:52 MCH 29.0 pg (27-33) 05/29/24 14:52 MCHC 33.7 g/dL (30-55) 05/29/24 14:52 RDW 11.8 % (12.1-15.1) L 05/29/24 14:52 Plt Count 136 10^3/cmm (157-399) L 05/29/24 14:52 MPV 10.2 fL (7.4-10.4) 05/29/24 14:52 Neut % (Auto) 2.6 % 05/29/24 14:52 Lymph % (Auto) 87.3 % 05/29/24 14:52 Hitchcock % (Auto) 10.1 % 05/29/24 14:52 Eos % (Auto) 0.0 % 05/29/24 14:52 Baso % (Auto) 0.0 % 05/29/24 14:52 Neut # (Auto) 0.02 10^3/uL (1.8-7.7) L* 05/29/24 14:52 Lymph # (Auto) 0.7 10^3/uL (0.8-4.8) L 05/29/24 14:52 Hitchcock # (Auto) 0.1 10^3/uL (0.2-0.9) L 05/29/24 14:52 Eos # (Auto) 0.0 10^3/uL (0.0-0.8) 05/29/24 14:52 Baso # (Auto) 0.0 10^3/uL (0.0-0.1) 05/29/24 14:52 Nucleated RBC % (auto) 0 % 05/29/24 14:52 Nucleated RBCs # 0.0 /100WBC 05/29/24 14:52 Peripher Smr Path Cons Sent for review 05/29/24 14:52 Sodium 130 mmol/L (136-145) L 05/29/24 14:52 Potassium 4.3 mmol/L (3.5-5.1) 05/29/24 14:52 Chloride 94 mmol/L (98-107) L 05/29/24 14:52 Carbon Dioxide 24 mmol/L (22-29) 05/29/24 14:52 Anion Gap 16.3 (5-19) 05/29/24 14:52 BUN 17 mg/dL (6-20) 05/29/24 14:52 Creatinine 1.3 mg/dL (0.7-1.2) H 05/29/24 14:52 GFR Calculation 64.8 mL/min (90-130) L 05/29/24 14:52 Glucose 106 mg/dL (65-115) 05/29/24 14:52 Calculated Osmolality 272 mOsm/kg (285-295) L 05/29/24 14:52 Lactic Acid 1.0 mmol/L (0.5-2.2) 05/29/24 14:54 Calcium 8.3 mg/dL (8.5-10.5) L 05/29/24 14:52 Total Bilirubin 1.2 mg/dL (0.15-1.2) 05/29/24 14:52 AST 26 U/L (0-40) 05/29/24 14:52 ALT 43 U/L (0-41) H 05/29/24 14:52 Alkaline Phosphatase 60 U/L (40-130) 05/29/24 14:52 C-Reactive Protein 98.9 mg/L (0.0-4.9) H 05/29/24 14:52 Total Protein 7.8 g/dL (6.6-8.7) 05/29/24 14:52 Albumin 4.1 g/dL (3.5-5.2) 05/29/24 14:52 Globulin 3.7 g/dL (1.3-4.6) 05/29/24 14:52 Procalcitonin 0.65 ng/mL (0-0.5) H 05/29/24 14:52 Urine Color Dark yellow (Yellow) A 05/29/24 15:06 Urine Appearance Clear (CLEAR) 05/29/24 15:06 Urine pH 6.5 (5-7) 05/29/24 15:06 Ur Specific Canon 1.029 (1.005-1.030) 05/29/24 15:06 Urine Protein 2+ (Negative) A 05/29/24 15:06 Urine Glucose (UA) Negative (Normal) 05/29/24 15:06 Urine Ketones Trace (Negative) 05/29/24 15:06 Urine Blood Negative (Negative) 05/29/24 15:06 Urine Nitrate Negative (Negative) 05/29/24 15:06 Urine Bilirubin 1+ (Negative) H 05/29/24 15:06 Urine Urobilinogen 2.0 mg/dL (Negative) H 05/29/24 15:06 Ur Leukocyte Esterase Negative (Negative) 05/29/24 15:06 Urine RBC 0-2 /hpf (0-2) 05/29/24 15:06 Urine WBC 0-5 /hpf (0-5) 05/29/24 15:06 Ur Squamous Epith Cells 0-5 /hpf (0-5) 05/29/24 15:06 Amorphous Sediment Not Reportable 05/29/24 15:06 Urine Bacteria None seen /hpf (NONE) 05/29/24 15:06 Hyaline Casts 0.81 /lpf 05/29/24 15:06 SARS-CoV-2 Ag (Rapid) negative (Negative) 05/29/24 15:29 Group A Strep Rapid Negative (Negative) 05/29/24 15:29 All radiology interpretation(s) finalized by discharge Discharge Plan Discharge Patient Disposition: Admitted As Inpatient Admit Provider: Rikki Ross Clinical Impression: Neutropenic fever, Severe sepsis, Acute kidney injury Condition: Stable Coding Level of Care Code ED Radio Talk Show Host for Declan Hartley
[2024-05-29 15:18] LABS: Alanine Aminotransferase 43 U/L (0-41); Albumin Level 4.1 g/dL (3.5-5.2); Alkaline Phosphatase 60 U/L (40-130); Anion Gap 16.3 (5-19); Aspartate Amino Transferase 26 U/L (0-40); Blood Urea Nitrogen 17 mg/dL (6-20); Calcium 8.3 mg/dL (8.5-10.5); Carbon Dioxide 24 mmol/L (22-29); Chloride 94 mmol/L (98-107); Globulin 3.7 g/dL (1.3-4.6); Glomerular Filtration Rate 64.8 mL/min (90-130); Glucose 106 mg/dL (65-115); Osmolality Calculated 272 mOsm/kg (285-295); Potassium 4.3 mmol/L (3.5-5.1); Sodium 130 mmol/L (136-145); Total Bilirubin 1.2 mg/dL (0.15-1.2); Total Protein 7.8 g/dL (6.6-8.7)
[2024-05-29 15:19] LABS: Charge for UA Resulting for Rev
[2024-05-29 15:20] LABS: Slide Review Slide Review Perform
[2024-05-29] MEDS: sodium chloride 0.9% 1,769.01 ML 1769.01 ML IV (15:21)
[2024-05-29 15:22] LABS: Neutrophils # 0.02 10^3/uL (1.8-7.7); White Blood Count 0.79 10^3/uL (3.29-11.43)
[2024-05-29 15:23] LABS: Creatinine Clr Calc Pharmacy 77.5721
[2024-05-29] MEDS: ondansetron 2 mg/ML SDV 2 mL 4 MG IVP ×2 (15:23→20:08)
[2024-05-29 15:26] LABS: Bilirubin Urine 1+ (Negative); Blood Urine Negative (Negative); Glucose Urine UA Negative (Normal); Ketones Urine Trace (Negative); Leukocyte Esterase Urine Negative (Negative); Nitrate Urine Negative (Negative); Protein Urine 2+ (Negative); Specific Gravity, Urine 1.029 (1.005-1.030); Urine Appearance Clear (CLEAR); Urine Color Dark Yellow (Yellow); pH Urine 6.5 (5-7)
[2024-05-29 15:33] LABS: Bacteria Urine None Seen /hpf; Hyaline Casts Urine 0.81 /lpf; RBC Urine 0-2 /hpf (0-2); Squamous Epithelial Cell Urine 0-5 /hpf (0-5); WBC Urine 0-5 /hpf (0-5)
--- NOTE | 2024-05-29 15:39 | CTR_ITS ---
PROCEDURE INFORMATION: Exam: CT Abdomen And Pelvis With Contrast Exam date and time: 05/29/2024 4:07 PM Age: 29 years old Clinical indication: Abdominal pain; Generalized; Additional info: Abd pain TECHNIQUE: Imaging protocol: Computed tomography of the abdomen and pelvis with contrast. Radiation optimization: All CT scans at this facility use at least one of these dose optimization techniques: automated exposure control; mA and/or kV adjustment per patient size (includes targeted exams where dose is matched to clinical indication); or iterative reconstruction. Contrast material: OMNI 350; Contrast volume: 100 ml; Contrast route: INTRAVENOUS (IV); COMPARISON: CT abdomen pelvis w con* [id number] 03/02/2024 12:20 PM RADIATION DOSE METRICS: Total DLP (mGy-cm): 346.33 FINDINGS: Liver: Normal. No mass. Gallbladder and biliary ducts: Normal. No calcified stones. No ductal dilation. Pancreas: Normal. No ductal dilation. Spleen: Normal. No splenomegaly. Adrenal glands: Normal. No mass. Kidneys and ureters: Similar nonobstructing left renal calculi measuring up to 4 mm. Stable left pelviectasis and mild prominence of the calices. No obvious hydronephrosis. Stomach and bowel: Moderate stool throughout the colon. Improved colonic mural thickening which was seen previously. Appendix: No evidence of appendicitis. Intraperitoneal space: Unremarkable. No free air. No significant fluid collection. Vasculature: Unremarkable. No abdominal aortic aneurysm. Lymph nodes: Unremarkable. No enlarged lymph nodes. Urinary bladder: Unremarkable as visualized. Reproductive: Stable mild prostatic enlargement. Bones/joints: Unremarkable. No acute fracture. Soft tissues: Unremarkable. CT/CT abdomen pelvis w con* [id number] IMPRESSION: 1. Stable nonobstructing left nephrolithiasis measuring up to 4 mL. 2. Similar mild left pelviectasis and prominence of the calices. This is a chronic finding. 3. Resolution of previously seen colonic mural thickening. 4. Moderate colonic stool may represent constipation.
[2024-05-29 15:45] LABS: Rapid Strep A Test Negative (Negative)
[2024-05-29 15:53] LABS: SARS Covid-2 Antigen negative (Negative)
[2024-05-29] MEDS: iohexol 350 mg/mL 500 mL Btl (per mL) IV (16:11)
--- NOTE | 2024-05-29 16:12 | P.HP_ITS ---
Providers/Chief Complaint 2 Chief Complaint: possible allergic reaction History of Present Illness Ronnie Calhoun is a 29 year old male with a past medical history significant for colitis who presents to the emergency department with fever and lightheadedness. Patient states he was in his usual state of health until last evening when he developed dizziness. This was followed by nausea, night sweats, lightheadedness, fevers and chills. He reports recurrent emesis and inability to hold down even water. States he tried to stay at home and not seek care thinking he would get better but symptoms continued to worsen. He denies diarrhea. Does note some abdominal discomfort in the lower quadrants. Denies any recent sick contacts. 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 He does report multiple exposures to ticks throughout the course of the summer. He does not recall a rash associated with any of the ticks. Patient has a history of colitis. He follows with Dr. Armstrong in general surgery clinic. He recently underwent colonoscopy with biopsy showing patchy colitis. He is currently on sulfasalazine and Bentyl. States that the dosing was increased on 05/23, he is unsure if that dose increase could be related to his current illness. In the emergency department, patient was found to be febrile and tachycardic. Labs revealed multiple abnormalities including several hematologic derangements including severe neutropenia, leukopenia, thrombocytopenia, lymphopenia, and monocytopenia. CMP revealed hyponatremia, hypochloremia, elevated creatinine, and elevated ALT. CT abdomen pelvis obtained without evidence of acute infectious colitis. Patient was started on broad-spectrum antibiotics. Review of Systems 2 Narrative: A complete review of systems was obtained and is negative except as stated in HPI. Medications/Allergies Home Medications Medication Instructions Recorded Confirmed Last Taken Type dicyclomine 20 mg tablet 40 mg (2 x 20 mg) PO QID 30 days 05/23/24 05/23/24 Unknown Rx #240 tabs sulfasalazine 500 mg 1.5 g (3 x 500 mg) PO BID 30 days 05/23/24 05/23/24 Unknown Rx tablet,delayed release #180 tabs Allergies Allergy/AdvReac Type Severity Reaction Status Date / Time No Known Allergies Allergy Verified 05/29/24 14:02 PFSH Acute 2 PFSH: Medical History IBS (irritable bowel syndrome) Left ureteral calculus Renal colic Surgical History H/O excision of epidermal inclusion cyst Family History Family/Other Dementia Social History Smoking and tobacco/nicotine status: former use of tobacco/nicotine Alcohol intake: never Substance/Drug Use: never Marital status: Vitals/I&O/Wt Last Vital Signs Temp 100.9 F H 05/29/24 13:58 Pulse 122 H 05/29/24 13:58 Resp 18 05/29/24 13:58 BP 115/69 05/29/24 13:58 Pulse Ox 98 05/29/24 13:58 O2 Del Method Room Air 05/29/24 13:58 Weight last 48 hrs Weight 58.967 kg Physical Exam 2 Narrative: General: Patient is awake. Febrile. Acutely ill-appearing. Head: Normocephalic. Atraumatic. EOM intact. Dry mucous membranes. Neck: No JVD. Cardiovascular: Tachycardic. No gallops. No murmurs. No peripheral edema. Delayed cap refill. Lungs: Adequate air movement, no use of accessory muscles, no crackles or wheezes. Skin: No jaundice. No rashes. Abdomen: Normal bowel sounds, abdomen soft and only slightly tender in lower quadrants to deep palpation. No guarding present. Genito Urinary: Genital exam not performed since complaints not related. Rectal: Rectal exam not performed since no symptoms indicated blood loss. Extremities: No cyanosis or clubbing. Musculoskeletal: No swollen or erythematous joints. Neurological: Moves all 4 extremities. No myoclonus. Data 05/29/24 14:52 05/29/24 14:52 Micro: Microbiology 05/29/24 14:54 Blood Culture - Preliminary Blood SPECIMEN COLLECTED 05/29/24 14:52 Blood Culture - Preliminary Blood SPECIMEN COLLECTED A&P Assessment and plan (1) Severe sepsis: Severe sepsis Source: Somewhat unclear, proceed to panculture SIRS: Febrile, tachycardic, leukopenic Endorgan damage: Acute kidney injury Panculture Tick panel Bolus with 30 mL/kg body weight IV fluids Start broad-spectrum antibiotics with cefepime Start doxycycline for tickborne illness coverage (2) Neutropenic fever: Severe neutropenia with ANC less than 500 Start broad-spectrum coverage with cefepime Neutropenic precautions (3) Acute kidney injury: Suspected prerenal in the settings of severe sepsis Start IV fluids Renally dose medications Strict I's and O's Daily weights (4) Chronic diarrhea: Patient has history of colitis, follows with Dr. Armstrong Hold Bentyl and sulfasalazine for now (5) Left ureteral calculus: CT shows stable nonobstructive findings (6) Subcutaneous mass: Radiographic soft tissue mass, stable in size Outpatient workup Plan DVT prophylaxis: SCD CODE STATUS: Full code Attestations 2 Medical Necessity Statement*: Patient presents with febrile with multiple infectious symptoms, found to have severe sepsis with neutropenic fever with severe neutropenia with expected hospitalization to cross 2 midnights for IV antibiotics, serial cultures, IV fluid resuscitation, further workup, and supportive care. Coding Level of Care Code Acute Code for [facility] Diagnoses Severe sepsis A41.9; R65.20 Neutropenic fever D70.9; R50.81 Acute kidney injury N17.9 Chronic diarrhea K52.9 Left ureteral calculus N20.1 Subcutaneous mass R22.9
[2024-05-29] MEDS: cefepime 1,000 MG in sodium chloride 0.9% (plus) 50 ML 100 MG IV (16:19)
[2024-05-29 18:04] LABS: C Reactive Protein 98.9 mg/L (0.0-4.9)
[2024-05-29 19:48] LABS: LAB Peripheral Smear Sent for Review
[2024-05-29 20:01] LABS: Procalcitonin 0.65 ng/mL (0-0.5)
[2024-05-29] MEDS: doxycycline 100 MG in sodium chloride 0.9% (plus) 100 ML IV (20:08)
[2024-05-29] MEDS: pantoprazole 40 mg SDV IVP (20:08)
[2024-05-29] MEDS: dextrose 5%-sod chloride 0.9% 1,000 ML 50 ML IV (20:09)
[2024-05-29] MEDS: acetaminophen 500 mg Tablet 1000 MG PO (20:09)
[2024-05-30] VITALS (9 sets, daily range): BP systolic 96–108; BP diastolic 62–70; PULSE 88–108; RESP 16–18; TEMP 36.9–38.2; O2SAT 96–99
[2024-05-30] MEDS: cefepime 2,000 mg SDV 2000 MG IV (00:04)
[2024-05-30] MEDS: sodium chloride 0.9% (plus) 50 ML 100 ML (00:12)
--- NOTE | 2024-05-30 00:12 | PC.NURSE ---
Used 50ml NS bag to administer ordered cefepime dose.
[2024-05-30 05:12] LABS: Hematocrit 33.8 % (37-53); Lymphocytes # 0.5 10^3/uL (0.8-4.8); Lymphocytes % 78.7 %; Mean Corpuscular Hemoglobin 29.2 pg (27-33); Mean Corpuscular Volume 85.8 fl (82-101); Monocytes # 0.1 10^3/uL (0.2-0.9); Monocytes % 19.7 %; Neutrophils % 1.6 %; Nucleated Red Blood Cells % 0 %; Platelet Count 98 10^3/cmm (157-399); Positive M 1; Red Blood Count 3.94 10^6/uL (3.85-5.65); Red Cell Distribution Width 11.9 % (12.1-15.1)
[2024-05-30 05:20] LABS: Neutrophils # 0.01 10^3/uL (1.8-7.7); White Blood Count 0.61 10^3/uL (3.29-11.43)
[2024-05-30 05:39] LABS: Alanine Aminotransferase 31 U/L (0-41); Alkaline Phosphatase 46 U/L (40-130); Anion Gap 12.1 (5-19); Aspartate Amino Transferase 21 U/L (0-40); Carbon Dioxide 24 mmol/L (22-29); Chloride 103 mmol/L (98-107); Globulin 2.2 g/dL (1.3-4.6); Glucose 102 mg/dL (65-115); Potassium 4.1 mmol/L (3.5-5.1)
[2024-05-30 05:47] LABS: Albumin Level 3.2 g/dL (3.5-5.2); Blood Urea Nitrogen 15 mg/dL (6-20); Calcium 7.8 mg/dL (8.5-10.5); Creatinine Clr Calc Pharmacy 91.6761; Glomerular Filtration Rate 78.6 mL/min (90-130); Magnesium 1.7 mg/dL (1.7-2.3); Osmolality Calculated 281 mOsm/kg (285-295); Phosphorus 2.1 mg/dL (2.5-4.5); Sodium 135 mmol/L (136-145)
[2024-05-30] MEDS: doxycycline 100 MG in sodium chloride 0.9% (plus) 100 ML IV ×2 (07:54→21:34)
--- NOTE | 2024-05-30 09:29 | PC.CHAP ---
Pastoral Care Encounter/Spiritual Assessment Type of Contact [] Declined tape maker visit [] Patient/Family/Request visit [] Outpatient visit [] Follow-up visit [] Physician referral [] Code/Alert [x] Routine visit [] Staff referral [] Actively dying [] Patient sleeping [] Family support [] [] Out of room [] Palliative care [] [] Receiving care in room [] Pre-surgical visit [] Trauma [] Long length of stay [] ICU visit [] Other: Relational/Emotional Strength [] Patient feels connected with others/family/visitors/staff [] Distress [] Loneliness/isolation [] Abandonment Spirituality of Patient [] Person of Rand [] Attends Congregation of their [place] [] Believes in Prayer [] Reads Bible or Latter Day materials [] There are Spiritual issues to be addressed Gis Coordinator Interventions [x] Prayer [] Active listening [] Non-anxious presence [] Spiritual/emotional support [] Crisis/trauma care [] Spiritual counseling [] Bereavement support [] Provided bereavement packet [] Provided Bible/devotional materials [] Provided toy/stuffed animal, coloring book to patient or family member [] Provided Communion [] Anointing/Clements [] Salvation [] Completed spiritual assessment [] Other: Impact on Illness or Injury [] Angry [] Fearful [] Anxious [] Often cries [] Exhaustion [] Unable to work [] Unable to attend faith [] Unable to walk/stand [] Unable to read [] Unable to drive [] Unable to eat/drink [] Unable to sleep [] Unable to be with family [] Patient intubated [] Other: Summary precaution Time spent with patient
[2024-05-30] MEDS: cefepime 2,000 MG in sodium chloride 0.9% (plus) 50 ML 100 MG IV ×2 (09:44→16:47)
--- NOTE | 2024-05-30 11:37 | P.PN_ITS ---
Subjective 2 Subjective: He is feeling better today overall. Did have a fever again this morning. Vitals/I&O/Wt Last Vital Signs Temp 98.5 F 05/30/24 11:21 Pulse 93 05/30/24 11:21 Resp 17 05/30/24 11:21 BP 108/66 05/30/24 11:21 Pulse Ox 98 05/30/24 11:21 O2 Del Method Room Air 05/30/24 11:21 05/29/24 05/30/24 05/30/24 22:59 06:59 14:59 Intake Total 390 / 390 Balance 390 / 390 Weight last 48 hrs Weight 58.967 kg Weight 58.922 kg Weight 58.967 kg Physical Exam 2 Const: COMMON NORMALS: patient oriented x3 and alert GENERAL APPEARANCE: c ooperative ORIENTATION/CONSCIOUSNESS: Yes awake HENMT: COMMON NORMALS: oropharynx normal Neck/C-Spine: COMMON NORMALS: no JVD Resp: COMMON NORMALS: normal respiratory effort and clear to auscultation bilaterally AUSCULTATION: clear to auscultation bilaterally Cardio: COMMON NORMALS: no JVD, regular rhythm, S1 normal heart sound present, S2 normal heart sound present and No murmurs present (Cardio) RHYTHM: regular rhythm HEART SOUNDS: S1 normal heart sound present and S2 normal heart sound present GI: COMMON NORMALS: Normal to inspection, nondistended, normoactive bowel sounds present, Soft to palpation and non-tender PALPATION: Yes Soft to palpation Extremity: COMMON NORMALS: no joint enlargement and no pedal edema Neuro: COMMON NORMALS: patient oriented x3 and moves all extremities S ENSORIUM/ORIENTATION: Yes alert Skin: COMMON NORMALS: no rashes or lesions noted GENERAL SKIN EXAM: no rashes or lesions noted Data 05/30/24 05:01 05/30/24 05:01 Micro: Microbiology 05/29/24 14:54 Blood Culture - Preliminary Blood SPECIMEN COLLECTED 05/29/24 14:52 Blood Culture - Preliminary Blood SPECIMEN COLLECTED A&P Assessment and plan (1) Severe sepsis: Unimproved, worsened neutropenia with neutropenic fever. Again febrile this morning at 100.8. Reviewed vitals, CBC, CMP, tick panel, MRSA PCR, chest x-ray, CT abdomen pelvis. Subjectively he states he is feeling better. Discussed with him regarding neutropenia, thrombocytopenia. Neutrophils today down to 0.01 ANC. Continue neutropenic precautions. He asks to advance diet. Advance neutropenic diet. Discussed precautions with him and his . Discussed with nursing, case work aide. Reviewed group A strep culture, blood culture. Pending so far. Continue empiric antibiotics including cefepime, doxycycline. Monitor for risk of encephalopathy with cefepime, risk of SJS. Reviewed peripheral smear, still pending. Discussed with him. Additionally discussed with him his medications, he states had been recently started on sulfasalazine. Discussed with him that sulfasalazine could cause granulocytosis, plastic anemia. Hold medication. Will additionally check ferritin, triglycerides. Reassess blood counts. (2) Neutropenic fever: As above. Repeat blood counts. Severe neutropenia with ANC less than 500 Broad-spectrum coverage with cefepime Neutropenic precautions (3) Acute kidney injury: Reviewed BUN, creatinine, electrolytes, INR. Decrease IV fluid rate. Suspected prerenal in the settings of severe sepsis Strict I's and O's Daily weights (4) Chronic diarrhea: Patient has history of colitis, follows with Dr. Nathaniel Chowdhury and sulfasalazine for now (5) Left ureteral calculus: CT shows stable nonobstructive findings (6) Subcutaneous mass: Radiographic soft tissue mass, stable in size Outpatient workup Plan Hypomagnesemia: Magnesium 1.7. Will give 1 g magnesium. DVT prophylaxis: SCD CODE STATUS: Full code Attestations 2 Medical Necessity Statement*: Continue admission for assessment management of neutropenic fever with severe acute neutropenia, thrombocytopenia. Diagnoses Severe sepsis A41.9; R65.20 Neutropenic fever D70.9; R50.81 Acute kidney injury N17.9 Chronic diarrhea K52.9 Left ureteral calculus N20.1 Subcutaneous mass R22.9
[2024-05-30 17:30] LABS: Triglycerides 82 mg/dL (0-150); Vitamin B12 425 pg/mL (232-1245)
[2024-05-30 17:37] LABS: Folate Level 17.7 ng/mL (4.5-32.2)
[2024-05-30 17:51] LABS: Ferritin 1450 ng/mL (30-400)
[2024-05-30] MEDS: magnesium sulfate premix 1 GM/100 ML PIGGYBACK IV (17:55)
[2024-05-30] MEDS: dextrose 5%-sod chloride 0.9% 1,000 ML 50 ML IV (21:30)
[2024-05-30] MEDS: pantoprazole 40 mg SDV IVP (21:38)
[2024-05-31] VITALS (9 sets, daily range): BP systolic 102–115; BP diastolic 67–73; PULSE 79–124; RESP 16–20; TEMP 36.7–37.7; O2SAT 95–98
[2024-05-31] MEDS: cefepime 2,000 MG in sodium chloride 0.9% (plus) 50 ML 100 MG IV ×4 (00:12→23:45)
[2024-05-31 06:12] LABS: Basophils % 0.6 %; Hematocrit 35.8 % (37-53); Lymphocytes # 1.4 10^3/uL (0.8-4.8); Lymphocytes % 80.3 %; Mean Corpuscular HGB Conc 34.1 g/dL (30-55); Mean Corpuscular Hemoglobin 28.7 pg (27-33); Mean Corpuscular Volume 84.2 fl (82-101); Mean Platelet Volume 10.6 fL (7.4-10.4); Monocytes # 0.3 10^3/uL (0.2-0.9); Monocytes % 19.1 %; Nucleated Red Blood Cells % 0 %; Platelet Count 82 10^3/cmm (157-399); Red Blood Count 4.25 10^6/uL (3.85-5.65); Red Cell Distribution Width 12.1 % (12.1-15.1); White Blood Count 1.73 10^3/uL (3.29-11.43)
[2024-05-31 06:26] LABS: Alanine Aminotransferase 29 U/L (0-41); Albumin Level 3.2 g/dL (3.5-5.2); Alkaline Phosphatase 49 U/L (40-130); Aspartate Amino Transferase 23 U/L (0-40); Blood Urea Nitrogen 13 mg/dL (6-20); Calcium 8.1 mg/dL (8.5-10.5); Carbon Dioxide 23 mmol/L (22-29); Chloride 102 mmol/L (98-107); Creatinine Clr Calc Pharmacy 99.2512; Glomerular Filtration Rate 99.1 mL/min (90-130); Glucose 92 mg/dL (65-115); Osmolality Calculated 278 mOsm/kg (285-295); Sodium 134 mmol/L (136-145); Total Bilirubin 0.7 mg/dL (0.15-1.2); Total Protein 6.2 g/dL (6.6-8.7)
[2024-05-31 06:37] LABS: Slide Review Slide Review Perform
[2024-05-31] MEDS: doxycycline 100 MG in sodium chloride 0.9% (plus) 100 ML IV ×2 (07:28→18:22)
[2024-05-31 08:23] LABS: Lyme AB Screen <0.90 index
[2024-05-31 14:09] LABS: Methicillin-Resist S.aureu PCR NOT DETECTED (NOT DETECTED)
--- NOTE | 2024-05-31 14:09 | P.PN_ITS ---
Subjective 2 Subjective: She is subjectively feeling better. Denies any further fever. Denies any additional new symptoms. Vitals/I&O/Wt Last Vital Signs Temp 98.1 F 05/31/24 11:41 Pulse 86 05/31/24 11:41 Resp 16 05/31/24 11:41 BP 115/73 05/31/24 11:41 Pulse Ox 97 05/31/24 11:41 O2 Del Method Room Air 05/31/24 11:41 05/30/24 05/31/24 05/31/24 22:59 06:59 14:59 Intake Total 1440 / 2070 100 / 2170 390 / 390 Output Total 700 / 700 Balance 1440 / 2070 100 / 2170 -310 / -310 Weight last 48 hrs Weight 58.468 kg Weight 58.967 kg Weight 58.922 kg Physical Exam 2 Narrative: Accompanied by his . Const: COMMON NORMALS: patient oriented x3 and alert GENERAL APPEARANCE: c ooperative ORIENTATION/CONSCIOUSNESS: Yes awake HENMT: COMMON NORMALS: oropharynx normal Neck/C-Spine: COMMON NORMALS: no JVD Resp: COMMON NORMALS: normal respiratory effort and clear to auscultation bilaterally AUSCULTATION: clear to auscultation bilaterally Cardio: COMMON NORMALS: no JVD, regular rhythm, S1 normal heart sound present, S2 normal heart sound present and No murmurs present (Cardio) RHYTHM: regular rhythm HEART SOUNDS: S1 normal heart sound present and S2 normal heart sound present GI: COMMON NORMALS: Normal to inspection, nondistended, normoactive bowel sounds present, Soft to palpation and non-tender PALPATION: Yes Soft to palpation Extremity: COMMON NORMALS: no joint enlargement and no pedal edema Neuro: COMMON NORMALS: patient oriented x3 and moves all extremities S ENSORIUM/ORIENTATION: Yes alert Skin: COMMON NORMALS: no rashes or lesions noted GENERAL SKIN EXAM: no rashes or lesions noted Data 05/31/24 05:47 05/31/24 05:47 Micro: Microbiology 05/29/24 15:29 Group A Streptococcus Rapid Screen - Final Throat 05/29/24 14:54 Blood Culture - Preliminary Blood NEGATIVE TO DATE 05/29/24 14:52 Blood Culture - Preliminary Blood NEGATIVE TO DATE A&P Assessment and plan (1) Bicytopenia: Worsening neutropenia and thrombocytopenia. Reviewed vitals, CBC, CMP, peripheral smear, tick panel. Discussed with patient. Tick panel still pending. Peripheral smear with severe neutropenia, thrombocytopenia, without blasts or nucleated cells. Reviewed and discussed results of triglyceride, elevated ferritin. Ferritin very elevated at 1450. Sulfasalazine could cause neutropenia, blastic anemia, and he does report that his symptoms started after starting the medication, but discussed consideration of additional causes, possibly autoimmune cause of bone marrow suppression and/or HLH especially with bicytopenia. Discussed consideration of transfer for further assessment at higher level care facility, bone marrow evaluation. Discussed risk of progression of illness and/for complication that could arise if not diagnosed/treated. He is reluctant to transfer, understands risks. Has taken some time to think about it. In the meantime discussed also with her rehabilitation manager, etiology is difficult to say, certainly sulfasalazine could be contributing to suppression, however, consideration may be given to autoimmune cause and bone marrow biopsy. Consideration could be given to reassessment again in the morning, he does show some improvement in lymphocytes today, in which case if there is improvement in neutrophils, continue to monitor recovery. Otherwise may be consideration of treatment with steroid for a potential autoimmune cause, with ferritin elevation possibly related to inflammation, also with elevated CRP. Versus again attempting to transfer. We discussed also consideration of Neupogen as per discussion with hematology, but as per discussion diffusion may help improve counts transiently while on the medication, but also will not provide any additional answers as to the etiology. In the meantime I had reached out to [facility] on which patient had settled as a choice for transfer, however, they do not currently have beds available and medicine has been on divert since 05/01. Relaying this to the patient with consideration of other options he decides for now to stay and reassess, consider trial of steroid. Will repeat blood counts, repeat CMP. Monitor condition. Monitor vitals for any recurrent fever. Continue empiric antibiotic and neutropenic precautions. Monitor for risk of encephalopathy, Baker-Maurilio syndrome with cefepime. Discussed with nursing, earlier discussed with employment case manager in rounds. (2) Severe sepsis: Improving sepsis, fever so far resolved, neutropenia with worsening. Unimproved, worsened neutropenia with neutropenic fever. Again febrile this morning at 100.8. Reviewed vitals, CBC, CMP, tick panel, MRSA PCR, chest x-ray, CT abdomen pelvis. Subjectively he states he is feeling better. Discussed with him regarding neutropenia, thrombocytopenia. Neutrophils today down to 0.01 ANC. Continue neutropenic precautions. He asks to advance diet. Advance neutropenic diet. Discussed precautions with him and his . Discussed with nursing, employment case manager. Reviewed group A strep culture, blood culture. Pending so far. Continue empiric antibiotics including cefepime, doxycycline. Monitor for risk of encephalopathy with cefepime, risk of SJS. Reviewed peripheral smear, still pending. Discussed with him. Additionally discussed with him his medications, he states had been recently started on sulfasalazine. Discussed with him that sulfasalazine could cause granulocytosis, plastic anemia. Hold medication. Will additionally check ferritin, triglycerides. Reassess blood counts. (3) Neutropenic fever: As above. Repeat blood counts. Severe neutropenia with ANC 0 Broad-spectrum coverage with cefepime Neutropenic precautions (4) Acute kidney injury: Reviewed BUN, creatinine, electrolytes Stop IV fluid. Suspected prerenal in the settings of severe sepsis Strict I's and O's Daily weights (5) Chronic diarrhea: Patient has history of colitis, follows with Dr. Nathaniel Chowdhury and sulfasalazine for now (6) Left ureteral calculus: CT shows stable nonobstructive findings (7) Subcutaneous mass: Radiographic soft tissue mass, stable in size Outpatient workup Plan Hypomagnesemia: Recheck magnesium level. DVT prophylaxis: SCD CODE STATUS: Full code Attestations 2 Medical Necessity Statement*: Continue admission for assessment management of severe acute neutropenia, thrombocytopenia. Diagnoses Bicytopenia D75.89 Severe sepsis A41.9; R65.20 Neutropenic fever D70.9; R50.81 Acute kidney injury N17.9 Chronic diarrhea K52.9 Left ureteral calculus N20.1 Subcutaneous mass R22.9
[2024-05-31] MEDS: pantoprazole 40 mg SDV IVP (18:18)
--- NOTE | 2024-05-31 20:28 | PC.NURSE ---
assumed care of pt at this time
[2024-05-31] MEDS: nicotine 21 mg Patch 1 PATCH TRANSDERMA (22:33)
[2024-06-01] VITALS (7 sets, daily range): BP systolic 107–116; BP diastolic 69–77; PULSE 82–90; RESP 16–18; TEMP 36.6–37.1; O2SAT 97–99
[2024-06-01 04:54] LABS: Hematocrit 37.4 % (37-53); Lymphocytes # 2.5 10^3/uL (0.8-4.8); Lymphocytes % 87.8 %; Mean Corpuscular HGB Conc 33.2 g/dL (30-55); Mean Corpuscular Hemoglobin 28.9 pg (27-33); Mean Corpuscular Volume 87.2 fl (82-101); Mean Platelet Volume 10.4 fL (7.4-10.4); Monocytes # 0.3 10^3/uL (0.2-0.9); Monocytes % 11.2 %; Nucleated Red Blood Cells % 0 %; Platelet Count 63 10^3/cmm (157-399); Red Blood Count 4.29 10^6/uL (3.85-5.65); Red Cell Distribution Width 12.3 % (12.1-15.1); White Blood Count 2.86 10^3/uL (3.29-11.43)
[2024-06-01 05:12] LABS: Alanine Aminotransferase 30 U/L (0-41); Albumin Level 3.3 g/dL (3.5-5.2); Alkaline Phosphatase 63 U/L (40-130); Aspartate Amino Transferase 26 U/L (0-40); Blood Urea Nitrogen 12 mg/dL (6-20); Carbon Dioxide 21 mmol/L (22-29); Chloride 101 mmol/L (98-107); Creatinine Clr Calc Pharmacy 126.8165; Glomerular Filtration Rate 132.4 mL/min (90-130); Glucose 91 mg/dL (65-115); Osmolality Calculated 275 mOsm/kg (285-295); Sodium 133 mmol/L (136-145); Total Bilirubin 0.5 mg/dL (0.15-1.2); Total Protein 6.3 g/dL (6.6-8.7)
[2024-06-01 05:14] LABS: Anion Gap 14.5 (5-19); Potassium 3.5 mmol/L (3.5-5.1)
[2024-06-01 05:26] LABS: Magnesium 1.8 mg/dL (1.7-2.3)
[2024-06-01 05:32] LABS: Slide Review Slide Review Perform
[2024-06-01] MEDS: doxycycline 100 MG in sodium chloride 0.9% (plus) 100 ML IV (06:30)
[2024-06-01] MEDS: cefepime 2,000 MG in sodium chloride 0.9% (plus) 50 ML 100 MG IV ×2 (09:30→17:18)
[2024-06-01 11:01] LABS: HIV 1 & 2 Antibody Non-Reactive (Non-Reactiv); HIV 1 & 2 Antigen Non-Reactive (Non-Reactiv)
[2024-06-01] MEDS: magnesium sulfate premix 1 GM/100 ML PIGGYBACK IV (13:33)
--- NOTE | 2024-06-01 15:57 | PC.NURSE ---
This nurse called report to Sophia Ross. Nurse Shira took report. All questions addressed at this time.
[2024-06-01] MEDS: predniSONE 20 mg Tablet 60 MG PO (17:19)
--- NOTE | 2024-06-01 19:04 | PM.TDS ---
Transfer Summary Providers Date of Admission: 05/29/24 16:19 Date of Discharge/Transfer: 06/01/24 Attending Provider at Admission: Rikki oRss MD Attending Provider at Transfer: Mason Alvarado Transfer Plans: Anticipated date of transfer: 06/01/24. Diagnoses at Discharge Discharge Diagnosis (1) Bicytopenia: Status: Acute (2) Severe sepsis: Status: Acute (3) Neutropenic fever: Status: Acute (4) Acute kidney injury: Status: Acute (5) Chronic diarrhea: Status: Chronic (6) Left ureteral calculus: Status: Acute (7) Subcutaneous mass: Status: Acute Reason for Visit Reason for Visit possible allergic reaction Brief History: Ronnie Calhoun is a 29 year old male with a past medical history significant for colitis who presents to the emergency department with fever and lightheadedness. Patient states he was in his usual state of health until last evening when he developed dizziness. This was followed by nausea, night sweats, lightheadedness, fevers and chills. He reports recurrent emesis and inability to hold down even water. States he tried to stay at home and not seek care thinking he would get better but symptoms continued to worsen. He denies diarrhea. Does note some abdominal discomfort in the lower quadrants. Denies any recent sick contacts. 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 He does report multiple exposures to ticks throughout the course of the summer. He does not recall a rash associated with any of the ticks. Patient has a history of colitis. He follows with Dr. Armstrong in general surgery clinic. He recently underwent colonoscopy with biopsy showing patchy colitis. He is currently on sulfasalazine and Bentyl. States that the dosing was increased on 05/23, he is unsure if that dose increase could be related to his current illness. In the emergency department, patient was found to be febrile and tachycardic. Labs revealed multiple abnormalities including several hematologic derangements including severe neutropenia, leukopenia, thrombocytopenia, lymphopenia, and monocytopenia. CMP revealed hyponatremia, hypochloremia, elevated creatinine, and elevated ALT. CT abdomen pelvis obtained without evidence of acute infectious colitis. Patient was started on broad-spectrum antibiotics. Hospital Course Hospital Course He was treated empirically with cefepime, also continued on doxycycline with tick exposure. Tick panel has been pending. Blood culture has been negative. Group A strep culture negative. MRSA PCR negative. Sulfasalazine was held due to possible agranulocytosis related to the medication. Peripheral smear was requested. B12, folic acid levels were checked and were normal. Peripheral smear confirmed cytopenias, did not show any blasts, nucleated cells or other abnormal cells. His fevers have resolved. Subjectively he has been feeling better. There has been some improvement in lymphocytes, but neutrophils and platelets have been worsening, however. HIV was checked and negative. ANC has come down and remained at 0. Platelets have come down to 63,000. CRP was elevated on presentation with autoimmune condition chronic consideration of autoimmune neutropenia, ferritin and triglycerides were checked. Triglycerides were normal. Ferritin elevated at 1450. Possibly inflammatory versus with bicytopenia consideration of possibly HLH. We have discussed further evaluation, including bone marrow biopsy which could not be performed here, discussed arrangements for transfer, however, there have not been beds available on attempted transfer. Recheck blood counts without improvement and with worsening thrombocytopenia today. Persistent ANC of 0. HIV was checked and is nonreactive. As per discussion with hematology and patient discussed risks of starting on steroid for possible autoimmune neutropenia while pending transfer for further workup, started on prednisone 60 mg daily. We have received notification that a bed has become available at [facility] in [place] where he was kindly accepted for further assessment and management after discussion with the team there earlier. Acute kidney injury on presentation resolved. He received fluid resuscitation with IV fluids which have been since discontinued. He is tolerating oral intake. Nonobstructing kidney stone noted in the left kidney incidentally on CT alongside with mild chronic left pelviectasis. Mild prostate enlargement. Of note prostate enlargement also noted on CT back in February at that time prostate 4.2 cm prominent for his age. PSA was recommended at that time. Documented soft tissue mass incidentally noted on radiography? I do not see a mass on documentation of current studies, perhaps at outside facility, will need follow-up outpatient. Physical Exam Narrative: Accompanied by his . Const: COMMON NORMALS: patient oriented x3 and alert GENERAL APPEARANCE: cooperative ORIENTATION/CONSCIOUSNESS: Yes awake HENMT: COMMON NORMALS: oropharynx normal Neck/C-Spine: COMMON NORMALS: no JVD Resp: COMMON NORMALS: normal respiratory effort and clear to auscultation bilaterally AUSCULTATION: clear to auscultation bilaterally Cardio: COMMON NORMALS: no JVD, regular rhythm, S1 normal heart sound present, S2 normal heart sound present and No murmurs present (Cardio) RHYTHM: regular rhythm HEART SOUNDS: S1 normal heart sound present and S2 normal heart sound present GI: COMMON NORMALS: Normal to inspection, nondistended, normoactive bowel sounds present, Soft to palpation and non-tender PALPATION: Yes Soft to palpation Extremity: COMMON NORMALS: no joint enlargement and no pedal edema Neuro: COMMON NORMALS: patient oriented x3 and moves all extremities SENSORIUM/ORIENTATION: Yes alert Skin: COMMON NORMALS: no rashes or lesions noted GENERAL SKIN EXAM: no rashes or lesions noted TS Data Studies Completed and Pending Pending at discharge Category Date Time Status Blood Culture Stat Lab 05/29/24 14:54 Results Complete Blood Count w/Auto AM LABS Lab 06/02/24 04:00 Ordered Comprehensive Metabolic Panel AM LABS Lab 06/02/24 04:00 Ordered Tick Panel Stat Lab 05/29/24 18:21 Results Completed Studies During Hospitalization Category Date Time Status CT abdomen pelvis w con* [id number] Stat Cat Scan 05/29/24 15:39 Completed XR chest 1V portable [id number] Stat Exams 05/29/24 15:14 Completed Laboratory Last Values WBC 2.86 10^3/uL (3.29-11.43) L 06/01/24 04:14 RBC 4.29 10^6/uL (3.85-5.65) 06/01/24 04:14 Hgb 12.40 g/dL (11.27-16.99) 06/01/24 04:14 Hct 37.4 % (37-53) 06/01/24 04:14 MCV 87.2 fl (82-101) 06/01/24 04:14 MCH 28.9 pg (27-33) 06/01/24 04:14 MCHC 33.2 g/dL (30-55) 06/01/24 04:14 RDW 12.3 % (12.1-15.1) 06/01/24 04:14 Plt Count 63 10^3/cmm (157-399) L 06/01/24 04:14 MPV 10.4 fL (7.4-10.4) 06/01/24 04:14 Neut % (Auto) 0.0 % 06/01/24 04:14 Lymph % (Auto) 87.8 % 06/01/24 04:14 [place] % (Auto) 11.2 % 06/01/24 04:14 Eos % (Auto) 0.0 % 06/01/24 04:14 Baso % (Auto) 1.0 % 06/01/24 04:14 Neut # (Auto) 0.00 10^3/uL (1.8-7.7) L* 06/01/24 04:14 Lymph # (Auto) 2.5 10^3/uL (0.8-4.8) 06/01/24 04:14 [place] # (Auto) 0.3 10^3/uL (0.2-0.9) 06/01/24 04:14 Eos # (Auto) 0.0 10^3/uL (0.0-0.8) 06/01/24 04:14 Baso # (Auto) 0.0 10^3/uL (0.0-0.1) 06/01/24 04:14 Nucleated RBC % (auto) 0 % 06/01/24 04:14 Nucleated RBCs # 0.0 /100WBC 06/01/24 04:14 Peripher Smr Path Cons Sent for review 05/29/24 14:52 Sodium 133 mmol/L (136-145) L 06/01/24 04:14 Potassium 3.5 mmol/L (3.5-5.1) 06/01/24 04:14 Chloride 101 mmol/L (98-107) 06/01/24 04:14 Carbon Dioxide 21 mmol/L (22-29) L 06/01/24 04:14 Anion Gap 14.5 (5-19) 06/01/24 04:14 BUN 12 mg/dL (6-20) 06/01/24 04:14 Creatinine 0.7 mg/dL (0.7-1.2) 06/01/24 04:14 GFR Calculation 132.4 mL/min (90-130) H 06/01/24 04:14 Glucose 91 mg/dL (65-115) 06/01/24 04:14 Calculated Osmolality 275 mOsm/kg (285-295) L 06/01/24 04:14 Lactic Acid 1.0 mmol/L (0.5-2.2) 05/29/24 14:54 Calcium 8.0 mg/dL (8.5-10.5) L 06/01/24 04:14 Phosphorus 2.1 mg/dL (2.5-4.5) L 05/30/24 05:01 Magnesium 1.8 mg/dL (1.7-2.3) 06/01/24 04:14 Ferritin 1450 ng/mL (30-400) H 05/30/24 05:01 Total Bilirubin 0.5 mg/dL (0.15-1.2) 06/01/24 04:14 AST 26 U/L (0-40) 06/01/24 04:14 ALT 30 U/L (0-41) 06/01/24 04:14 Alkaline Phosphatase 63 U/L (40-130) 06/01/24 04:14 C-Reactive Protein 98.9 mg/L (0.0-4.9) H 05/29/24 14:52 Total Protein 6.3 g/dL (6.6-8.7) L 06/01/24 04:14 Albumin 3.3 g/dL (3.5-5.2) L 06/01/24 04:14 Globulin 3.0 g/dL (1.3-4.6) 06/01/24 04:14 Triglycerides 82 mg/dL (0-150) 05/30/24 05:01 Vitamin B12 425 pg/mL (232-1245) 05/30/24 05:01 Folate 17.7 ng/mL (4.5-32.2) 05/30/24 05:01 Procalcitonin 0.65 ng/mL (0-0.5) H 05/29/24 14:52 Urine Color Dark yellow (Yellow) A 05/29/24 15:06 Urine Appearance Clear (CLEAR) 05/29/24 15:06 Urine pH 6.5 (5-7) 05/29/24 15:06 Ur Specific [place] 1.029 (1.005-1.030) 05/29/24 15:06 Urine Protein 2+ (Negative) A 05/29/24 15:06 Urine Glucose (UA) Negative (Normal) 05/29/24 15:06 Urine Ketones Trace (Negative) 05/29/24 15:06 Urine Blood Negative (Negative) 05/29/24 15:06 Urine Nitrate Negative (Negative) 05/29/24 15:06 Urine Bilirubin 1+ (Negative) H 05/29/24 15:06 Urine Urobilinogen 2.0 mg/dL (Negative) H 05/29/24 15:06 Ur Leukocyte Esterase Negative (Negative) 05/29/24 15:06 Urine RBC 0-2 /hpf (0-2) 05/29/24 15:06 Urine WBC 0-5 /hpf (0-5) 05/29/24 15:06 Ur Squamous Epith Cells 0-5 /hpf (0-5) 05/29/24 15:06 Amorphous Sediment Not Reportable 05/29/24 15:06 Urine Bacteria None seen /hpf (NONE) 05/29/24 15:06 Hyaline Casts 0.81 /lpf 05/29/24 15:06 Lyme Ab (Western Blot) <0.90 index 05/29/24 18:21 HIV 1&2 Ab & HIV 1 Ag Non-reactive (Non-Reactiv) 05/31/24 05:47 HIV 1&2 Antibody Non-reactive (Non-Reactiv) 05/31/24 05:47 SARS-CoV-2 Ag (Rapid) negative (Negative) 05/29/24 15:29 MRSA (PCR) Not detected (NOT DETECTED) 05/29/24 22:03 Group A Strep Rapid Negative (Negative) 05/29/24 15:29 Radiology Impressions Chest X-Ray 05/29/24 15:14 IMPRESSION: No acute findings. Abdomen/Pelvis CT 05/29/24 15:39 IMPRESSION: 1. Stable nonobstructing left nephrolithiasis measuring up to 4 mL. 2. Similar mild left pelviectasis and prominence of the calices. This is a chronic finding. 3. Resolution of previously seen colonic mural thickening. 4. Moderate colonic stool may represent constipation. Recent Clincial Data Last Vital Signs Temp 97.9 F 06/01/24 15:02 Pulse 86 06/01/24 17:35 Resp 16 06/01/24 15:02 BP 107/69 06/01/24 15:02 Pulse Ox 98 06/01/24 15:02 O2 Del Method Room Air 06/01/24 15:02 Vital Signs Temp Pulse Resp BP Pulse Ox O2 Del Method 06/01/24 17:35 86 06/01/24 15:02 97.9 F 82 16 107/69 98 Room Air 06/01/24 12:00 97.8 F 90 17 109/76 99 Room Air 06/01/24 07:51 97.8 F 90 17 113/74 97 Room Air Intake & Output/Weight 05/30/24 05/31/24 06/01/24 06/02/24 06:59 06:59 06:59 06:59 Intake Total 2170 / 2170 2695 / 2695 2240 / 2240 Output Total 2900 / 2900 300 / 300 Balance 2170 / 2170 -205 / -205 1940 / 1940 Weight 58.967 kg 58.468 kg 58.105 kg Vitals Last Vital Signs Temp 97.9 F 06/01/24 15:02 Pulse 86 06/01/24 17:35 Resp 16 06/01/24 15:02 BP 107/69 06/01/24 15:02 Pulse Ox 98 06/01/24 15:02 O2 Del Method Room Air 06/01/24 15:02 TS Medications Medications Acetaminophen (Acetaminophen 500 Mg Tablet) 1,000 mg PO Q6H PRN PRN Reason: Mild/Mod Pain Or Temp >/= 101 Last Admin: 05/29/24 20:09 Dose: 1,000 mg Doxycycline Hyclate 100 mg/ (Sodium Chloride) 100 mls @ 100 mls/hr IV Q12H [facility]; Protocol Last Admin: 06/01/24 18:40 Dose: Not Given Cefepime HCl 2,000 mg/ Sodium (Chloride) 50 mls @ 100 mls/hr IV Q8H [facility] Last Infusion: 06/01/24 17:55 Dose: Infused Nicotine (Nicotine 21 Mg Patch) 1 patch TRANSDERMA DAILY [facility] Last Admin: 06/01/24 09:30 Dose: Not Given Ondansetron HCl (Ondansetron 2 Mg/Ml Sdv 2 Ml) 4 mg IVP Q8H PRN PRN Reason: vomiting, or N/V if npo Last Admin: 05/29/24 20:08 Dose: 4 mg Ondansetron HCl (Ondansetron 4 Mg Tablet) 4 mg PO Q8H PRN PRN Reason: NAUSEA Pantoprazole Sodium (Pantoprazole 40 Mg Sdv) 40 mg IVP Q24H [facility] Last Admin: 06/01/24 18:40 Dose: Not Given Prednisone (Prednisone 20 Mg Tablet) 60 mg PO DAILY [facility] Last Admin: 06/01/24 17:19 Dose: 60 mg Discontinued Medications Cefepime HCl (Cefepime 2,000 Mg Sdv) 2,000 mg IV Q8H [facility]; Protocol Last Admin: 05/30/24 19:18 Dose: Not Given Sodium Chloride (Sodium Chloride 0.9%) 1,769.01 mls @ 1,769.01 mls/hr 30 ml/kg infuse over 1 hr (1769.01 ml) IV .Q1H ONE Stop: 05/29/24 16:12 Last Infusion: 05/29/24 17:05 Dose: Infused Cefepime HCl 1,000 mg/ Sodium (Chloride) 50 mls @ 100 mls/hr IV ONCE ONE; Protocol Stop: 05/29/24 16:08 Last Infusion: 05/29/24 17:05 Dose: Infused Dextrose/Sodium Chloride (Dextrose 5%-Sod Chloride 0.9%) 1,000 mls @ 30 mls/hr IV .Q24H [facility] Last Infusion: 06/01/24 13:37 Dose: Infused Sodium Chloride (Sodium Chloride 0.9% (Plus)) Confirm Administered Dose 50 mls @ as directed .ROUTE .STK-MED ONE Stop: 05/29/24 23:10 Last Infusion: 05/30/24 02:46 Dose: Infused Magnesium Sulfate/Dextrose (Magnesium Sulfate Premix) 1 gm in 100 mls @ 200 mls/hr IV ONCE ONE Stop: 05/30/24 17:21 Last Infusion: 05/30/24 19:18 Dose: Infused Magnesium Sulfate/Dextrose (Magnesium Sulfate Premix) 1 gm in 100 mls @ 200 mls/hr IV ONCE ONE Stop: 06/01/24 13:12 Last Infusion: 06/01/24 15:44 Dose: Infused Iohexol (Iohexol 350 Mg/Ml 500 Ml Btl (Per Ml)) 0 ml IV ONCE ONE Stop: 05/29/24 16:12 Last Admin: 05/29/24 16:11 Dose: 80 ml Nicotine (Nicotine 21 Mg Patch) 1 patch TRANSDERMA DAILY [facility] Ondansetron HCl (Ondansetron 2 Mg/Ml Sdv 2 Ml) 4 mg IVP ONCE ONE Stop: 05/29/24 15:14 Last Admin: 05/29/24 15:23 Dose: 4 mg Allergies No Known Allergies Allergy (Verified 05/29/24 14:02) Home Medications dicyclomine 20 mg tablet 40 mg (2 x 20 mg) PO QID 30 days #240 tabs 05/23/24 [Rx Confirmed 05/30/24] sulfasalazine 500 mg tablet,delayed release 1.5 g (3 x 500 mg) PO BID 30 days #180 tabs 05/23/24 [Rx Confirmed 05/30/24] Discharge Plan Discharge Patient Disposition: Xfer Short-Term Hosp Condition: Stable Prescriptions: No Action sulfasalazine 500 mg tablet,delayed release (DR/EC) 1.5 g PO BID 30 Days Qty: 180 1RF dicyclomine 20 mg tablet 40 mg PO QID 30 Days Qty: 240 11RF Patient Instructions: Opioid Safety Transfer Attestations Time Spent in Transfer Care: greater than 30 min Quality Metrics Clinical Quality Measures [ No reported AMI, CVA or VTE this stay] Coding Level of Care Code 94070 Total time (in minutes) for Discharge: 55 Diagnoses Bicytopenia D75.89 Severe sepsis A41.9; R65.20 Neutropenic fever D70.9; R50.81 Acute kidney injury N17.9 Chronic diarrhea K52.9 Left ureteral calculus N20.1 Subcutaneous mass R22.9
[2024-06-03 16:39] LABS: RMSF IGG NOT DETECTED; RMSF IGM NOT DETECTED
[2024-06-05 16:25] LABS: E. Chaffeensis AB IGM 1:20
== END 2024-06-01 19:00 | disposition short-term general hospital (02) | DRG 872 ==
LOC: ER 15:17 → MEDSURG 05-30 07:30
PROVIDERS: Nurse Practitioner Family; Admitting Provider Internal Medicine; Emergency Provider Family Medicine; Visit Provider Internal Medicine
DX: A41.9 Sepsis, unspecified organism (principal); N17.9 Acute kidney failure, unspecified; K50.90 Crohn's disease, unspecified, without complications; N20.2 Calculus of kidney with calculus of ureter; R65.20 Severe sepsis without septic shock; D70.9 Neutropenia, unspecified; R50.81 Fever presenting with conditions classified elsewhere; K52.9 Noninfective gastroenteritis and colitis, unspecified; Z87.891 Personal history of nicotine dependence; R22.9 Localized swelling, mass and lump, unspecified; E83.42 Hypomagnesemia; D69.6 Thrombocytopenia, unspecified; D75.89 Other specified diseases of blood and blood-forming organs
CPT/HCPCS: 36415; 71045; 74177; 80053; 80503; 81003; 81015; 82607; 82728; 82746; 83605; 83735; 84100; 84145; 84478; 85025; 86140; 86618; 86666; 86757; 87040; 87081; 87426; 87641; 87806; 87880; 96365; 96375; 99285; J0692; J2405; J2470; J3475; J3490; J7030; J7042; J7512; Q9967